=== PATIENT | female | born 2000 | race Caucasian/White ===

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

== ENCOUNTER 2021-08-28 16:33 | Emergency (ER) | payer MEDICAID ==
[~2021-08-28] VITALS: Ht 165 cm; Wt 111.0 kg
--- NOTE | 2021-08-28 17:00 | ED GI ---
General Chief Complaint: Abdominal/GI Problems Stated Complaint: SENT OVER FOR FLUIDS Source of Information: Patient Exam Limitations: No Limitations (OSWALDO RAY STUDENT) History of Present Illness Date Seen by Provider: Aug 28, 2021 Time Seen by Provider: 16:45 Initial Comments Patient is a 21 year old female who presents to the ED with a 4 day history of nausea and vomiting. Reports she had a period of 3-4 days of nausea and vomiting about 10 days ago as well. She is currently 8 weeks by ultrasound dating. Was seen at [facility] this afternoon for the same complaints, but were unable to establish IV access or draw labs so was sent to the ED. She reports having multiple bouts of nausea and vomiting at home for the last four days. Hasn't been able to keep any liquid or solids down since Friday. This is her first . Has no significant medical history. Denies chest pain, SOB, fevers, dysuria, diarrhea, headaches, and dizziness. Reports trying toast and light meals but has had no success keeping food down. Decided to present today due to inability to keep water down today. Timing/Duration: 3-4 Days Activities at Onset: None Modifying Factors: Improves With Eating Associated Symptoms: No Back Pain, No Chest Pain, No Fever/Chills, No Heartburn; Nausea/Vomiting; No Rash, No Shortness of Air, No Syncope (SOWALDO RAY MED STUDENT) Initial Comments G1 at approximately 8 weeks by ultrasound which changed her dating reports with nausea vomiting for the past 4 days. She had one episode of this before. No history of hyperemesis. No fevers chills nausea or vomiting. No sick contacts. Known to Dr. Paz. She was given a prescription for Phenergan, doxylamine and pyridoxine but has only tried the Phenergan so far without effect yesterday. LMP was 06/24/2021. (VINOD ROWE) Allergies and Home Medications Allergies Coded Allergies: Sulfa (Sulfonamide Antibiotics) (Verified Allergy, Unknown, Rash, 08/28/21) States the Sulfas in shampoo give her a rash Patient Home Medication List Home Medication List Reviewed: Yes (VINOD ROWE) Review of Systems Review of Systems Constitutional: No chills, No diaphoresis, No fever, No weakness EENTM: No Symptoms Reported; No Blurred Vision, No Double Vision, No Nose Congestion Respiratory: No Symptoms Reported; Denies Cough, Denies Shortness of Air, Denies Wheezing Cardiovascular: No Symptoms Reported; Denies Chest Pain, Denies Edema, Denies Lightheadedness, Denies Palpitations Gastrointestinal: Nausea, Vomiting Genitourinary: No Symptoms Reported; Denies Burning, Denies Discharge, Denies Drainage, Denies Frequency, Denies Pain Musculoskeletal: no symptoms reported; No back pain, No joint pain, No joint swelling Skin: no symptoms reported; No change in color, No change in hair/nails Psychiatric/Neurological: No Symptoms Reported; Denies Anxiety, Denies Depressed, Denies Headache Endocrine: No Symptoms Reported; Denies Excessive Sweating, Denies Flushing Hematologic/Lymphatic: No Symptoms Reported; Denies Easy Bleeding, Denies Easy Bruising ([email or web address] STUDENT) All Other Systems Reviewed Negative Unless Noted: Yes (DANE [email or web address] STUDENT) Past Abonpqy-Xmwcbn-Mvsmnr Hx Patient Social History Tobacco Use?: No Smoking Status: Never a Smoker Smokeless Tobacco Frequency: Never a User Use of E-Cig and/or Vaping dev: No Use of E-Cig and/or Vaping Johny: Never a User Substance use?: No Alcohol Use?: No (DANE [email or web address] STUDENT) Immunizations Up To Date Tetanus Booster (TDap): Unknown Influenza Vaccine Up-to-Date: Yes; Up-to-Date ([email or web address] STUDENT) Seasonal Allergies Seasonal Allergies: No ([email or web address] STUDENT) Past Medical History Surgeries: Yes (Oral surgery for fractured tooth removal) Respiratory: No Cardiac: No Neurological: No : Yes Hx : 1 Hx Para: 0 Reproductive Disorders: No Sexually Transmitted Disease: No HIV/AIDS: No Genitourinary: No Gastrointestinal: No Musculoskeletal: No Endocrine: No HEENT: No Loss of Vision: Denies Hearing Impairment: Denies Cancer: No Psychosocial: Yes Anxiety Integumentary: No Blood Disorders: No ([email or web address] STUDENT) Physical Exam Vital Signs Vital Signs - First Documented 08/28/21 16:40 Temp 36.4 Pulse 96 Resp 20 B/P (MAP) 139/89 (106) Pulse Ox 96 O2 Delivery Room Air (VINOD ROWE) Vital Signs Capillary Refill : (OSWALDO RAY MED STUDENT) Height/Weight/BMI Height: '" Weight: lbs. oz. kg; BMI Method: General Appearance: WD/WN, no apparent distress HEENT: PERRL/EOMI, pharynx normal Neck: non-tender, full range of motion, normal inspection Respiratory: chest non-tender, lungs clear, normal breath sounds Cardiovascular: normal peripheral pulses, regular rate, rhythm, no murmur Peripheral Pulses: 2+ Radial Pulses (R), 2+ Radial Pulses (L) Gastrointestinal: normal bowel sounds, non tender, soft; No guarding, No rebound, No tenderness Rectal: deferred Extremities: normal range of motion, non-tender, no pedal edema, no calf tenderness, normal capillary refill Back: normal inspection, no CVA tenderness, no vertebral tenderness Neurologic/Psychiatric: claim clerk II-XII nml as tested, alert, normal mood/affect, oriented x 3 Skin: normal color, warm/dry Lymphatic: no adenopathy (Head and Neck) (OSWALDO RAY MED STUDENT) Progress/Results/Core Measures Results/Orders Lab Results Laboratory Tests Test 08/28/21 16:49 Range/Units White Blood Count 11.9 H 4.3-11.0 10^3/uL Red Blood Count 4.88 3.80-5.11 10^6/uL Hemoglobin 12.9 11.5-16.0 g/dL Hematocrit 39 35-52 % Mean Corpuscular Volume 80 80-99 fL Mean Corpuscular Hemoglobin 26 25-34 pg Mean Corpuscular Hemoglobin Concent 33 32-36 g/dL Red Cell Distribution Width 13.9 10.0-14.5 % Platelet Count 362 130-400 10^3/uL Mean Platelet Volume 10.4 9.0-12.2 fL Immature Granulocyte % (Auto) 0 % Neutrophils (%) (Auto) 66 42-75 % Lymphocytes (%) (Auto) 26 12-44 % Monocytes (%) (Auto) 7 0-12 % Eosinophils (%) (Auto) 1 0-10 % Basophils (%) (Auto) 1 0-10 % Neutrophils # (Auto) 7.9 H 1.8-7.8 10^3/uL Lymphocytes # (Auto) 3.0 1.0-4.0 10^3/uL Monocytes # (Auto) 0.8 0.0-1.0 10^3/uL Eosinophils # (Auto) 0.1 0.0-0.3 10^3/uL Basophils # (Auto) 0.1 0.0-0.1 10^3/uL Immature Granulocyte # (Auto) 0.0 0.0-0.1 10^3/uL Sodium Level 136 135-145 MMOL/L Potassium Level 3.5 L 3.6-5.0 MMOL/L Chloride Level 103 98-107 MMOL/L Carbon Dioxide Level 19 L 21-32 MMOL/L Anion Gap 14 5-14 MMOL/L Blood Urea Nitrogen 8 7-18 MG/DL Creatinine 0.70 0.60-1.30 MG/DL Estimat Glomerular Filtration Rate 125 BUN/Creatinine Ratio 11 Glucose Level 92 70-105 MG/DL Calcium Level 9.6 8.5-10.1 MG/DL Magnesium Level 1.9 1.6-2.4 MG/DL (VINOD ROWE) My Orders Orders - VINOD ROWE Ed Iv/Invasive Line Start (08/28/21 17:09) Lactated Ringers (Lr 1000 Ml Iv Solution (08/28/21 17:15) Pyridoxine Tablet (Vitamin B-6 Tablet) (08/28/21 17:15) Diphenhydramine Injection (Benadryl Inje (08/28/21 17:15) Cbc With Automated Diff (08/28/21 17:09) Basic Metabolic Panel (08/28/21 17:09) Magnesium (08/28/21 17:09) Famotidine Tablet (Pepcid Tablet) (08/28/21 17:17) Antacid Suspension (Mylanta Suspension (08/28/21 17:30) Ondansetron Injection (Zofran Injectio (08/28/21 18:00) (VINOD ROWE) Medications Given in ED Current Medications Medications Dose Ordered Sig/Asuncion Route Start Time Stop Time Status Last Admin Dose Admin Al Hydrox/Mg Hydrox/Simethicone 30 ml ONCE ONCE PO 08/28/21 17:30 08/28/21 17:31 DC 08/28/21 17:28 30 ML Diphenhydramine HCl 25 mg ONCE ONCE IVP 08/28/21 17:15 08/28/21 17:16 DC 08/28/21 17:19 25 MG Lactated Ringer's 1,000 ml @ 0 mls/hr Q0M ONCE IV 08/28/21 17:15 08/28/21 17:16 DC 08/28/21 17:18 0 MLS/HR Ondansetron HCl 8 mg ONCE ONCE IVP 08/28/21 18:00 08/28/21 18:01 DC 08/28/21 17:58 8 MG Pyridoxine HCl 50 mg ONCE ONCE PO 08/28/21 17:15 08/28/21 17:16 DC 08/28/21 17:42 50 MG (VINOD ROWE) Vital Signs/I&O 08/28/21 16:40 Temp 36.4 Pulse 96 Resp 20 B/P (MAP) 139/89 (106) Pulse Ox 96 O2 Delivery Room Air (VINOD ROWE) Progress Progress Note #1: Time: 17:16 Progress Note We will give her a liter of lactated Ringer's, pyridoxine and IV Benadryl for her nausea. She is not retching at this time. Her vital signs are normal. As long as her labs are okay and we can control her symptoms we will let her go home. She is have some acid reflux so we will give her some Maalox as well. I attest that I saw this patient alongside the medical student and agree with his documented history, physical exam and review of systems except as otherwise noted. Progress Note #2: Time: 18:19 Progress Note Patient's fluids were not done but she is still having some nausea with retching so 8 mg of Zofran IV were ordered. Care of the patient passed to Sera Meyer at shift change. (VINOD ROWE) Transfer of Care Time: 18:10 Care transferred to: Sera Meyer TAX MAP TECHNICIAN (VINOD ROWE) Departure Impression Primary Impression: Nausea and vomiting during Disposition: 01 HOME, SELF-CARE Condition: Stable Departure-Patient Inst. Decision time for Depature: 18:07 (SERA MEYER POWER SYSTEM OPERATOR) Referrals: DUSTIN SHER MD (PCP/Family) Primary Care Physician Patient Instructions: Nausea and Vomiting, Adult Add. Discharge Instructions: 1. Return to Er for any concerns 2. Follow up with your doctor later this week All discharge instructions reviewed with patient and/or family. Voiced understanding. Work/School Note: Work Release Form Date Seen in the Emergency Department: Aug 28, 2021 Return to Work: Aug 29, 2021 I was not present in the Department at the time this patient was seen and evaluated. My name was attached to the chart by mistake. I have not seen, evaluated or participated in the care of this patient on this date. (UMER MORENO MD) OSWALDO RAY MED STUDENT Aug 28, 2021 17:00 VINOD ROWE Aug 28, 2021 17:17 SERA MEYER APRN Aug 28, 2021 18:06 UMER MORENO MD Aug 30, 2021 06:28
[2021-08-28 17:15] LABS: BASOPHILS # (AUTO) 0.1 10^3/uL (0.0-0.1); BASOPHILS % (AUTO) 1 % (0-10); EOSINOPHILS # (AUTO) 0.1 10^3/uL (0.0-0.3); EOSINOPHILS % (AUTO) 1 % (0-10); HEMATOCRIT 39 % (35-52); HEMOGLOBIN 12.9 g/dL (11.5-16.0); LYMPHOCYTES % (AUTO) 26 % (12-44); MEAN CORPUSCULAR HEMOGLOBIN 26 pg (25-34); MEAN CORPUSCULAR HGB CONC 33 g/dL (32-36); MEAN CORPUSCULAR VOLUME 80 fL (80-99); MEAN PLATELET VOLUME 10.4 fL (9.0-12.2); MONOCYTES # (AUTO) 0.8 10^3/uL (0.0-1.0); MONOCYTES % (AUTO) 7 % (0-12); NEUTROPHILS # (AUTO) 7.9 10^3/uL (1.8-7.8); NEUTROPHILS % (AUTO) 66 % (42-75); PLATELET COUNT 362 10^3/uL (130-400); WHITE BLOOD COUNT 11.9 10^3/uL (4.3-11.0)
[2021-08-28] MEDS ORDERED: PYRIDOXINE (VITAMIN B-6) 50 MG TABLET PO ONE (17:15)
[2021-08-28] MEDS ORDERED: LACTATED RINGERS 1,000 ML IV ONE (17:15)
[2021-08-28] MEDS ORDERED: diphenhydrAMINE 50 MG/ML INJ (BENADRYL) IVP ONE (17:15)
[2021-08-28] MEDS ORDERED: FAMOTIDINE 20 MG (PEPCID) TABLET PO STA (17:17)
[2021-08-28 17:26] LABS: CALCIUM 9.6 MG/DL (8.5-10.1); CREATININE SERUM 0.7 MG/DL (0.60-1.30); MAGNESIUM 1.9 MG/DL (1.6-2.4); POTASSIUM 3.5 MMOL/L (3.6-5.0)
[2021-08-28] MEDS ORDERED: ANTACID SUSP 30 ML UDC (MYLANTA) PO ONE (17:30)
[2021-08-28] MEDS ORDERED: ONDANSETRON 4 MG/2 ML (SDV) Z0FRAN IVP ONE (18:00)
[2021-08-28 18:28] VITALS: BP 116/68
== END 2021-08-28 18:28 | disposition home or self-care (01) ==
LOC: EDUNIT# 16:33 → ER 16:37
DX: O21.0 Mild hyperemesis gravidarum (principal); Z3A.08 8 weeks gestation of pregnancy
CPT/HCPCS: 36415; 80048; 83735; 85025

== ENCOUNTER 2021-09-23 16:13 | Emergency (ER) | payer MEDICAID ==
[~2021-09-23] VITALS: Ht 165 cm; Wt 113.3 kg
[2021-09-23] MEDS ORDERED: NS IV 1000 ML 1,000 ML IV STA ×2 (16:46→18:25)
--- NOTE | 2021-09-23 16:50 | ED GU-Female ---
General Chief Complaint: - Reproductive Stated Complaint: 12 WKS PREG/VOMITING/DIZZY Nursing Triage Note: PT PRESENTS TO ED VIA POV FROM HOME WITH COMPLAINTS OF NAUSEA/VOMITING STARTING THIS AM. PT REPORTS SHE HAS HAD 10 EPISODES OF EMESIS SINCE THIS AM. PT IS APROX 12 WEEKS . Source: patient Exam Limitations: no limitations (ANDREA RICHARDSON) History of Present Illness Date Seen by Provider: Sep 23, 2021 Time Seen by Provider: 16:47 Initial Comments Patient is a 21-year-old female who is 12 weeks presents ED with vomiting. She states since 4:00 this morning she has vomited 10+ episodes without any blood or mucus. No diarrhea. No abdominal pain. Some mild cramping to the lower back however that has improved. No vaginal bleeding, vaginal discharge or urinary symptoms. Intermittent vomiting over the past 3 to 4 weeks. Currently being managed by Dr. Rodriguez. Was placed on Phenergan and recently changed to Zofran. Last dose of Zofran this morning. She reports mild lightheadedness and dizziness and feels dehydrated. Requesting IV fluids. She denies chest pain, abdominal pain, cough ,short of breath, sore throat, ear pain headache, visual changes. No history of hypertension, diabetes. (ANDREA RICHARDSON) Allergies and Home Medications Allergies Coded Allergies: Sulfa (Sulfonamide Antibiotics) (Verified Allergy, Unknown, Rash, 08/28/21) States the Sulfas in shampoo give her a rash Patient Home Medication List Home Medication List Reviewed: Yes (ANDREA RICHARDSON) Review of Systems Review of Systems Constitutional: No chills, No diaphoresis, No malaise, No weakness EENTM: No ear pain, No blurred vision, No double vision, No hoarseness, No mouth pain Respiratory: No cough, No dyspnea on exertion Cardiovascular: No chest pain Gastrointestinal: No abdominal pain, No diarrhea; nausea, vomiting Genitourinary: denies burning, denies discharge, denies frequency, denies flank pain, denies hematuria, denies urgency Musculoskeletal: No back pain, No joint pain Skin: No change in color (ANDREA RICHARDSON) All Other Systemes Reviewed Negative Unless Noted: Yes (ANDREA RICHARDSON) Past Wvpqwnr-Uflpnn-Oiomkd Hx Patient Social History Tobacco Use?: No Substance use?: No Alcohol Use?: No Pt feels they are or have been: No (ANDREA RICHARDSON) Immunizations Up To Date Tetanus Booster (TDap): Unknown First/Initial COVID19 Vaccinat: DID RECEIVE, UNK WHEN Second COVID19 Vaccination Eriberto: DID RECEIVEN, UNK WHEN COVID19 Vaccine Travel Specialist: JUVENTINO (ANDREA RICHARDSON) Seasonal Allergies Seasonal Allergies: No (ANDREA RICHARDSON) Past Medical History Surgery/Hospitalization HX: PMH: ACID REFLUX, ANXIETY Surgeries: Yes (Oral surgery for fractured tooth removal) Respiratory: No Cardiac: No Neurological: No Reproductive Disorders: No Sexually Transmitted Disease: No HIV/AIDS: No Genitourinary: No Gastrointestinal: No Musculoskeletal: No Endocrine: No HEENT: No Loss of Vision: Denies Hearing Impairment: Denies Cancer: No Psychosocial: Yes Anxiety Integumentary: No Blood Disorders: No (ANDREA RICHARDSON) Physical Exam Vital Signs Vital Signs - First Documented 09/23/21 09/23/21 16:20 19:31 Pulse 104 Resp 18 B/P (MAP) 117/96 (103) Pulse Ox 99 O2 Delivery Room Air (TATUM HYDE MD) Vital Signs Capillary Refill : Less Than 3 Seconds (ANDREA RICHARDSON) Height, Weight, BMI Height: '" Weight: lbs. oz. kg; 41.00 BMI Method: General Appearance: WD/WN, no apparent distress HEENT: PERRL/EOMI, normal ENT inspection, TMs normal, pharynx normal Neck: non-tender, full range of motion, supple, normal inspection Cardiovascular: regular rate, rhythm, no edema, no gallop, no JVD Respiratory: chest non-tender, lungs clear, normal breath sounds, no respiratory distress, no accessory muscle use Gastrointestinal: normal bowel sounds, non tender, soft, no organomegaly Back: normal inspection, no CVA tenderness Extremities: normal range of motion, non-tender, normal inspection, no pedal edema, no calf tenderness Neurologic/Psychiatric: manager labor relations II-XII nml as tested, no motor/sensory deficits, alert, normal mood/affect, oriented x 3 Skin: normal color, warm/dry (ANDREA RICHARDSON) Progress/Results/Core Measures Suspected Sepsis SIRS Temperature: Pulse: 104 Respiratory Rate: 18 Laboratory Tests 09/23/21 16:30: White Blood Count 8.6 Blood Pressure 117 /96 Mean: 103 Laboratory Tests 09/23/21 16:30: Creatinine 0.65, Platelet Count 267, Total Bilirubin 0.7 (ANDREA RICHARDSON) Results/Orders Lab Results Laboratory Tests Test 09/23/21 16:30 Range/Units White Blood Count 8.6 4.3-11.0 10^3/uL Red Blood Count 4.83 3.80-5.11 10^6/uL Hemoglobin 13.0 11.5-16.0 g/dL Hematocrit 40 35-52 % Mean Corpuscular Volume 82 80-99 fL Mean Corpuscular Hemoglobin 27 25-34 pg Mean Corpuscular Hemoglobin Concent 33 32-36 g/dL Red Cell Distribution Width 14.7 H 10.0-14.5 % Platelet Count 267 130-400 10^3/uL Mean Platelet Volume 10.4 9.0-12.2 fL Immature Granulocyte % (Auto) 0 % Neutrophils (%) (Auto) 87 H 42-75 % Lymphocytes (%) (Auto) 10 L 12-44 % Monocytes (%) (Auto) 3 0-12 % Eosinophils (%) (Auto) 0 0-10 % Basophils (%) (Auto) 0 0-10 % Neutrophils # (Auto) 7.5 1.8-7.8 10^3/uL Lymphocytes # (Auto) 0.9 L 1.0-4.0 10^3/uL Monocytes # (Auto) 0.2 0.0-1.0 10^3/uL Eosinophils # (Auto) 0.0 0.0-0.3 10^3/uL Basophils # (Auto) 0.0 0.0-0.1 10^3/uL Immature Granulocyte # (Auto) 0.0 0.0-0.1 10^3/uL Urine Color DARK YELLOW Urine Clarity CLEAR Urine pH 7.0 5-9 Urine Specific Rover 1.020 1.016-1.022 Urine Protein TRACE H NEGATIVE Urine Glucose (UA) NEGATIVE NEGATIVE Urine Ketones 3+ H NEGATIVE Urine Nitrite NEGATIVE NEGATIVE Urine Bilirubin NEGATIVE NEGATIVE Urine Urobilinogen 0.2 < = 1.0 MG/DL Urine Leukocyte Esterase NEGATIVE NEGATIVE Urine RBC (Auto) NEGATIVE NEGATIVE Urine RBC NONE /HPF Urine WBC NONE /HPF Urine Crystals NONE /LPF Urine Bacteria TRACE /HPF Urine Casts NONE /LPF Urine Mucus LARGE H /LPF Urine Culture Indicated NO Sodium Level 138 135-145 MMOL/L Potassium Level 3.9 3.6-5.0 MMOL/L Chloride Level 106 98-107 MMOL/L Carbon Dioxide Level 17 L 21-32 MMOL/L Anion Gap 15 H 5-14 MMOL/L Blood Urea Nitrogen 4 L 7-18 MG/DL Creatinine 0.65 0.60-1.30 MG/DL Estimat Glomerular Filtration Rate 128 BUN/Creatinine Ratio 6 Glucose Level 99 70-105 MG/DL Calcium Level 9.3 8.5-10.1 MG/DL Corrected Calcium 9.3 8.5-10.1 MG/DL Magnesium Level 1.8 1.6-2.4 MG/DL Total Bilirubin 0.7 0.1-1.0 MG/DL Aspartate Amino Transf (AST/SGOT) 35 H 5-34 U/L Alanine Aminotransferase (ALT/SGPT) 103 H 0-55 U/L Alkaline Phosphatase 75 40-136 U/L Total Protein 7.3 6.4-8.2 GM/DL Albumin 4.0 3.2-4.5 GM/DL Lipase 19 8-78 U/L Human Chorionic Gonadotropin, Quant 76434 H <5 MIU/ML (TATUM HYDE MD) Medications Given in ED Current Medications Medications Dose Ordered Sig/Asuncion Route Start Time Stop Time Status Last Admin Dose Admin Ondansetron HCl 4 mg ONCE ONCE IVP 09/23/21 17:00 09/23/21 17:01 DC 09/23/21 17:07 4 MG Promethazine HCl 25 mg ONCE ONCE IVP 09/23/21 18:30 09/23/21 18:31 DC 09/23/21 18:36 25 MG (TATUM HYDE MD) Vital Signs/I&O 09/23/21 09/23/21 16:20 19:31 Pulse 104 72 Resp 18 18 B/P (MAP) 117/96 (103) 107/70 Pulse Ox 99 96 O2 Delivery Room Air (TATUM HYDE MD) Vital Signs/I&O Capillary Refill : Less Than 3 Seconds (ANDREA RICHARDSON) Blood Pressure Mean: 103 Departure Communication (PCP) Patient presents to ED nausea and vomiting since this morning. 12 weeks . She has no abdominal pain with some mild discomfort in her lower back. She has had a previous ultrasound. No vaginal bleeding or urinary symptoms, vaginal discharge. Urinalysis negative for infection but with positive ketones. Concerning for dehydration. Lab work showed normal white blood count kidney function and electrolytes. Slight elevated liver enzymes. She has no right upper quadrant tenderness, right lower quadrant tenderness to suggest surgical abdomen. No cough shortness of breath. She is normotensive. Vital signs stable. Was given a liter of fluid and Zofran as she was prescribed Zofran and Phenergan by her [employer] [address] Rodriguez. Patient was given a second dose of Phenergan and another liter of fluid. Patient started to have an appetite was able to eat peanut butter and crackers here. Was drinking p.o. fluids at bedside. She is requesting to be discharge as she states she feels hungry. cardiac activity noted. Patient is recommend to follow-up with her [employer] TE[employer] TEACHER in the next few days for reevaluation. If any worsening symptoms return back to ED for further evaluation. She does have nausea medication. Vomiting during . (ANDREA RICHARDSON) Impression Primary Impression: Nausea and vomiting during Disposition: 01 HOME, SELF-CARE Condition: Stable Departure-Patient Inst. Referrals: ANA RODRIGUEZ MD (PCP) Primary Care Physician DUSTIN SHER MD (Family) Primary Care Physician Patient Instructions: Nausea and Vomiting of ATTENDING PHYSICIAN NOTE: I was physically present as attending physician in the emergency department during the care of this patient, but I was not directly involved in the decision making or delivery of care for this patient. (TATUM HYDE MD) ANDREA RICHARDSON Sep 23, 2021 16:50 TATUM HYDE MD Sep 23, 2021 20:25
[2021-09-23 16:53] LABS: BASOPHILS % (AUTO) 0 % (0-10); EOSINOPHILS % (AUTO) 0 % (0-10); HEMATOCRIT 40 % (35-52); LYMPHOCYTES # (AUTO) 0.9 10^3/uL (1.0-4.0); LYMPHOCYTES % (AUTO) 10 % (12-44); MEAN CORPUSCULAR HEMOGLOBIN 27 pg (25-34); MEAN CORPUSCULAR HGB CONC 33 g/dL (32-36); MEAN CORPUSCULAR VOLUME 82 fL (80-99); MEAN PLATELET VOLUME 10.4 fL (9.0-12.2); MONOCYTES # (AUTO) 0.2 10^3/uL (0.0-1.0); MONOCYTES % (AUTO) 3 % (0-12); NEUTROPHILS # (AUTO) 7.5 10^3/uL (1.8-7.8); NEUTROPHILS % (AUTO) 87 % (42-75); PLATELET COUNT 267 10^3/uL (130-400); WHITE BLOOD COUNT 8.6 10^3/uL (4.3-11.0)
[2021-09-23 16:54] LABS: POTASSIUM 3.9 MMOL/L (3.6-5.0)
[2021-09-23 16:55] LABS: CALCIUM 9.3 MG/DL (8.5-10.1)
[2021-09-23 16:56] LABS: TOTAL PROTEIN 7.3 GM/DL (6.4-8.2)
[2021-09-23 16:58] LABS: BILIRUBIN,TOTAL 0.7 MG/DL (0.1-1.0)
[2021-09-23 17:00] LABS: CREATININE SERUM 0.65 MG/DL (0.60-1.30)
[2021-09-23] MEDS ORDERED: ONDANSETRON 4 MG/2 ML (SDV) Z0FRAN IVP ONE (17:00)
[2021-09-23 17:03] LABS: MAGNESIUM 1.8 MG/DL (1.6-2.4)
[2021-09-23 17:27] LABS: BILIRUBIN,URINE NEGATIVE (NEGATIVE); CLARITY,URINE CLEAR; COLOR,URINE DARK YELLOW; GLUCOSE, URINE (UA) NEGATIVE (NEGATIVE); KETONES,URINE 3+ (NEGATIVE); LEUKOCYTE ESTERASE ,URINE NEGATIVE (NEGATIVE); NITRITE,URINE NEGATIVE (NEGATIVE); PROTEIN,URINE TRACE (NEGATIVE)
[2021-09-23 17:38] LABS: BACTERIA,URINE TRACE /HPF
[2021-09-23] MEDS ORDERED: PROMETHAZINE INJ 25 MG/ML (PHENERGAN) AMP IVP ONE (18:30)
[2021-09-23 19:31] VITALS: BP 107/70
== END 2021-09-23 19:29 | disposition home or self-care (01) ==
LOC: EDUNIT# 16:13 → ER 16:14
DX: O21.0 Mild hyperemesis gravidarum (principal); Z3A.12 12 weeks gestation of pregnancy
CPT/HCPCS: 36415; 80053; 81000; 83690; 83735; 84702; 85025

== ENCOUNTER 2021-10-05 11:02 | Day surgery (SDC) | payer MEDICAID ==
[~2021-10-05] VITALS: Ht 165.1 cm; Wt 105.0 kg
[2021-10-05] VITALS (15 sets, daily range): BP systolic 79–131; BP diastolic 37–83
[2021-10-05] MEDS ORDERED: fentaNYL INJ 100 MCG/2 ML AMP ONE (11:29)
[2021-10-05] MEDS ORDERED: LACTATED RINGERS 1,000 ML IV PRN (11:30)
[2021-10-05] MEDS ORDERED: MIDAZOLAM 2 MG/2 ML (VERSED) VIAL IV ONE (11:30)
[2021-10-05] MEDS ORDERED: DOXYCYCLINE INJECTION 100 MG in NS (IVPB) 100 ML IV ONE (11:30)
[2021-10-05 11:50] LABS: CLARITY,URINE CLEAR; COLOR,URINE YELLOW; GLUCOSE, URINE (UA) NEGATIVE (NEGATIVE); KETONES,URINE 3+ (NEGATIVE); LEUKOCYTE ESTERASE ,URINE 1+ (NEGATIVE); NITRITE,URINE NEGATIVE (NEGATIVE); PROTEIN,URINE NEGATIVE (NEGATIVE)
[2021-10-05 12:04] LABS: BACTERIA,URINE NEGATIVE /HPF; BILIRUBIN,URINE 1+ (NEGATIVE); RBC,URINE RARE /HPF; SQUAMOUS EPITHELIAL CELL,UR 0-2 /HPF
[2021-10-05 12:28] LABS: BASOPHILS % (AUTO) 0 % (0-10); EOSINOPHILS # (AUTO) 0.1 10^3/uL (0.0-0.3); EOSINOPHILS % (AUTO) 1 % (0-10); HEMATOCRIT 38 % (35-52); HEMOGLOBIN 12.5 g/dL (11.5-16.0); LYMPHOCYTES # (AUTO) 3.1 10^3/uL (1.0-4.0); LYMPHOCYTES % (AUTO) 34 % (12-44); MEAN CORPUSCULAR HEMOGLOBIN 27 pg (25-34); MEAN CORPUSCULAR HGB CONC 33 g/dL (32-36); MEAN CORPUSCULAR VOLUME 83 fL (80-99); MEAN PLATELET VOLUME 10.6 fL (9.0-12.2); MONOCYTES # (AUTO) 0.6 10^3/uL (0.0-1.0); MONOCYTES % (AUTO) 6 % (0-12); NEUTROPHILS # (AUTO) 5.5 10^3/uL (1.8-7.8); NEUTROPHILS % (AUTO) 59 % (42-75); PLATELET COUNT 290 10^3/uL (130-400); WHITE BLOOD COUNT 9.4 10^3/uL (4.3-11.0)
[2021-10-05] MEDS ORDERED: LIDOCAINE/EPI 1%-1:200,000 (XYLOCAINE) 30 ML VIAL ONE (12:43)
[2021-10-05] MEDS ORDERED: ONDANSETRON 4 MG/2 ML (SDV) Z0FRAN IVP PRN ×2 (12:45→13:30)
[2021-10-05] MEDS ORDERED: D5 LR IV SOLUTION 1,000 ML IV SCH (12:45)
[2021-10-05] MEDS ORDERED: KETOROLAC 30 MG/ML VIAL IVP ONE (12:45)
[2021-10-05] MEDS ORDERED: ONDANSETRON 4 MG/2 ML (SDV) Z0FRAN ONE (12:56)
[2021-10-05] MEDS ORDERED: KETOROLAC 30 MG/ML VIAL ONE (12:56)
[2021-10-05] MEDS ORDERED: proPOfol 200 MG/20 ML (DIPRIVAN) VIAL IV ONE (12:56)
[2021-10-05] MEDS ORDERED: LIDOCAINE PF 2% 5 ML (XYLOCAINE) VIAL ONE (12:56)
[2021-10-05] MEDS ORDERED: SEVOFLURANE (ULTANE) 15 ML INHAL SOLN ONE (13:16)
[2021-10-05] MEDS ORDERED: MEPERIDINE (DEMEROL) INJ 50 MG/ML IVP ONE (13:30)
[2021-10-05] MEDS ORDERED: morphine INJ 10 MG/ML 1ML (SYR OR VIAL) IVP ONE (13:30)
[2021-10-05] MEDS ORDERED: HYDROmorphone 2 MG/ML VIAL (DILAUDID) IV ONE (13:30)
--- NOTE | 2021-10-05 13:46 | Anesthesia-General Post-Op ---
General Patient Condition Mental Status/LOC: Same as Preop Cardiovascular: Satisfactory Nausea/Vomiting: Absent Respiratory: Satisfactory Pain: Controlled Complications: Absent Post Op Complications Complications None Follow Up Care/Instructions Patient Instructions None needed. Anesthesia/Patient Condition Patient Condition Patient is doing well, no complaints, stable vital signs, no apparent adverse anesthesia problems. No complications reported per nursing. BUTCH SANCHEZ CRNA October 05, 2021 13:46
[2021-10-05] MEDS ORDERED: oxyCODONE/APAP 5/325MG (PERCOCET 5) TABLET PO ONE ×2 (14:45→15:30)
[2021-10-05] MEDS ORDERED: LACTATED RINGERS 1,000 ML IV SCH ×2 (15:00→15:30)
--- NOTE | 2021-10-07 22:21 | OB/GYN Operative Report ---
Operative Report Date of Procedure:October 07, 2021 Preoperative Diagnosis: [Missed AB at 8 weeks] Postoperative Diagnosis: [Same] Name of the Procedure: [Sono-guided suction D&C] Surgeon: Jonathon Webb Sharepoint Manager(s): [none] Anesthesia: [General] Complications: None Disposition: [Stable Procedure After the risk benefits alternatives of the procedure were described to the patient she was taken to the operating room where general anesthesia was obtained at difficulty. Bedside sono confirmed diagnosis. She was prepped and draped in the usual sterile fashion. A weighted speculum was placed in the patient's vagina and the anterior lip of the cervix grasped with a double-tooth tenaculum. A paracervical block was placed with lidocaine with epi. The cervix was serially dilated to accommodate an 8 curved suction tip. The suction tip was advanced under sono guidance, suction applied and the device removed. This was repeated until no further products of tissue were seen in the suction tubing and sono confirmed removal of all appreciated products of conception. Minimal lochia was noted. All instruments removed from the patient's vagina. Patient tolerated the procedure well sponge lap needle instrument counts were correct and she was taken to the recovery room awake and in stable condition. She received doxycycline 100 mg preop JONATHON WEBB MD October 07, 2021 22:21
== END 2021-10-05 15:45 | disposition home or self-care (01) ==
LOC: SDC 11:02
PROVIDERS: ATTEND Obstetrics & Gynecology
DX: O02.1 Missed abortion (principal); N85.8 Other specified noninflammatory disorders of uterus; E66.9 Obesity, unspecified; Z68.38 Body mass index [BMI] 38.0-38.9, adult
CPT/HCPCS: 36415; 81000; 84702; 85025; 86850; 86900; 86901; 87081

== ENCOUNTER → 2022-01-09 | Outpatient (CLI) | payer MEDICAID ==
[2022-01-09 14:13] VITALS: BP 137/67
--- NOTE | 2022-01-09 16:33 | Cardiology Stress Test Report ---
Stress Test Report Date of Procedure/Referring: Date of Procedure: Jan 09, 2022 PCP Effie Davila Aprn Admitting Physician Admitting Physician: Attending Physician: Kalin Lima MD Indications: CP Baseline Heart Rate: 88 Baseline Blood Pressure: Blood Pressure Systolic: 137 Blood Pressure Diastolic: 67 Baseline EKG: Baseline EKG: NSR Summary/Conclusion: Summary: In summary, the patient started exercising with a baseline heart rate, blood pressure and EKG mentioned above Patient was able to exercise for a total of 5 minutes on Scotty protocol, METs 7 Maximum heart rate 180 Maximum blood pressure 159/52 Stress EKG, Minimal nondiagnostic changes Recovery EKG , Return to baseline Conclusion: 1. Good exercise tolerance for a total of 5 minutes on Scotty protocol, 7 METs, achieving 90 percent of maximum expected heart rate 2. Minimal nondiagnostic EKG changes with exercise returned to baseline during recovery 3. No arrhythmia was noted KALIN LIMA MD Jan 09, 2022 16:33
== END ==
LOC: CARD 13:00
PROVIDERS: ATTEND Internal Medicine Cardiovascular Disease
DX: I35.1 Nonrheumatic aortic (valve) insufficiency (principal); I25.10 Atherosclerotic heart disease of native coronary artery without angina pectoris; I10 Essential (primary) hypertension
CPT/HCPCS: 93017; 93306

== ENCOUNTER 2022-04-27 20:18 | Emergency (ER) | payer MEDICAID ==
[~2022-04-27] VITALS: Ht 162.6 cm; Wt 105.0 kg
[2022-04-27] MEDS ORDERED: LACTATED RINGERS 1,000 ML IV ONE (20:30)
--- NOTE | 2022-04-27 20:38 | ED GI ---
General Chief Complaint: Abdominal/GI Problems Stated Complaint: VOMITING 9 WKS PREG Nursing Triage Note: Pt ambulates to ED8, reports she is a "few days shy of 9 weeks ", increasing nausea, reports cannot keep anything down, increasing severity beginning earlier today Source of Information: Patient History of Present Illness Date Seen by Provider: Apr 27, 2022 Time Seen by Provider: 20:25 Initial Comments PT ARRIVES VIA POV FROM HOME PT STATES SHE IS 9 WEEKS , WITH LMP OF 02/22/22. HAD + HOME TEST THE END OF MARCH. PT IS AB1--MISSED AB WITH D&C 10/05/21 HAS FIRST OB APPOINTMENT WITH DR. GARCIA 05/02/22. SHE HAS HAD ONGOING NAUSEA AND VOMITING FOR THE LAST COUPLE OF WEEKS, WAS WORSE TODAY STATES SHE CAN'T KEEP ANYTHING DOWN. HAS VOMITED 5-6 TIMES TODAY. NO COFFEE- GROUND EMESIS OR HEMATEMESIS NO BM TODAY, HAD A VERY HARD/CONSTIPATED STOOL YESTERDAY; NO BLACK/BLOODY/TARRY STOOLS HAS NOT VOIDED SINCE THIS AM. NO FEVER ABDOMINAL MUSCLES ARE STARTING TO GET SORE FROM VOMITING, BUT NO PELVIC PAIN OR CRAMPING] NO VAGINAL BLEEDING. TOOK A ZOFRAN THIS AM. PT HAS HISTORY OF GERD AND IBS, BUT DOES NOT TAKE MEDICATION FOR THOSE PROBLEMS WAS TAKING LEXAPRO FOR ANXIETY, SHE IS NOT CURRENTLY TAKING IT. SHE DOES NOT TAKE ANY DAILY MEDICATION OTHER THAN VITAMINS AT THIS TIME. PCP: SEES [facility] [employer] HERE IN [place]. Allergies and Home Medications Allergies Coded Allergies: Sulfa (Sulfonamide Antibiotics) (Verified Allergy, Unknown, Rash, 08/28/21) States the Sulfas in shampoo give her a rash Patient Home Medication List No Active Prescriptions or Reported Meds Review of Systems Review of Systems Constitutional: no symptoms reported Respiratory: No Symptoms Reported Cardiovascular: No Symptoms Reported Gastrointestinal: See HPI Genitourinary: See HPI Musculoskeletal: no symptoms reported Skin: no symptoms reported Psychiatric/Neurological: No Symptoms Reported Endocrine: No Symptoms Reported Hematologic/Lymphatic: No Symptoms Reported Past Pilrncf-Bllihw-Pbosub Hx Patient Social History Tobacco Use?: No Smoking Status: Never a Smoker Smokeless Tobacco Frequency: Never a User Use of E-Cig and/or Vaping dev: No Use of E-Cig and/or Vaping Johny: Never a User Substance use?: No Alcohol Use?: No Pt feels they are or have been: No Immunizations Up To Date Tetanus Booster (TDap): Unknown First/Initial COVID19 Vaccinat: DID RECEIVE, UNK WHEN Second COVID19 Vaccination Eriberto: DID RECEIVEN, UNK WHEN Third COVID19 Vaccination Date: DID RECEIVE, UNK WHEN Seasonal Allergies Seasonal Allergies: No Past Medical History Surgery/Hospitalization HX: PMH: ACID REFLUX, ANXIETY Surgeries: Yes (Oral surgery for fractured tooth removal;D&C 10/05/21 FOR MISSED AB. ) Respiratory: No Currently Using CPAP: No Currently Using BIPAP: No Cardiac: No Neurological: No : Yes Last Menstrual Period: Feb 22, 2022 Hx : 2 Hx Para: 0 Hx Total # of Abortions (Sp): 1 (MISSED AB WITH D&C 10/05/21) Reproductive Disorders: No Female Reproductive Disorders: Denies Sexually Transmitted Disease: No HIV/AIDS: No Genitourinary: No Gastrointestinal: No Musculoskeletal: No Endocrine: No HEENT: No Loss of Vision: Denies Hearing Impairment: Denies Cancer: No Psychosocial: Yes Anxiety Integumentary: No Blood Disorders: No Physical Exam Vital Signs Vital Signs - First Documented 04/27/22 20:28 Temp 36.4 Pulse 116 Resp 22 B/P (MAP) 153/103 (120) Pulse Ox 98 O2 Delivery Room Air Capillary Refill : Height/Weight/BMI Height: '" Weight: lbs. oz. kg; 39.00 BMI Method: General Appearance: WD/WN, obese, other (ANXIOUS) HEENT: PERRL/EOMI, other (ORAL MUCOSA MOIST) Neck: normal inspection Respiratory: normal breath sounds, no respiratory distress, no accessory muscle use Cardiovascular: no murmur Gastrointestinal: normal bowel sounds, soft, tenderness (MILD EPIGASTRIC TEND ERNESS. 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, no motor/sensory deficits, alert, oriented x 3 Skin: normal color, warm/dry Progress/Results/Core Measures Results/Orders Lab Results Laboratory Tests Test 04/27/22 20:32 04/27/22 21:01 Range/Units White Blood Count 10.4 4.3-11.0 10^3/uL Red Blood Count 5.23 H 3.80-5.11 10^6/uL Hemoglobin 12.0 11.5-16.0 g/dL Hematocrit 38 35-52 % Mean Corpuscular Volume 73 L 80-99 fL Mean Corpuscular Hemoglobin 23 L 25-34 pg Mean Corpuscular Hemoglobin Concent 31 L 32-36 g/dL Red Cell Distribution Width 19.6 H 10.0-14.5 % Platelet Count 360 130-400 10^3/uL Mean Platelet Volume 10.0 9.0-12.2 fL Immature Granulocyte % (Auto) 0 % Neutrophils (%) (Auto) 61 42-75 % Lymphocytes (%) (Auto) 31 12-44 % Monocytes (%) (Auto) 5 0-12 % Eosinophils (%) (Auto) 2 0-10 % Basophils (%) (Auto) 0 0-10 % Neutrophils # (Auto) 6.4 1.8-7.8 10^3/uL Lymphocytes # (Auto) 3.3 1.0-4.0 10^3/uL Monocytes # (Auto) 0.5 0.0-1.0 10^3/uL Eosinophils # (Auto) 0.2 0.0-0.3 10^3/uL Basophils # (Auto) 0.0 0.0-0.1 10^3/uL Immature Granulocyte # (Auto) 0.0 0.0-0.1 10^3/uL Sodium Level 138 135-145 MMOL/L Potassium Level 3.5 L 3.6-5.0 MMOL/L Chloride Level 104 98-107 MMOL/L Carbon Dioxide Level 18 L 21-32 MMOL/L Anion Gap 16 H 5-14 MMOL/L Blood Urea Nitrogen 5 L 7-18 MG/DL Creatinine 0.70 0.60-1.30 MG/DL Estimat Glomerular Filtration Rate 125 BUN/Creatinine Ratio 7 Glucose Level 94 70-105 MG/DL Calcium Level 9.6 8.5-10.1 MG/DL Corrected Calcium 9.4 8.5-10.1 MG/DL Total Bilirubin 0.4 0.1-1.0 MG/DL Aspartate Amino Transf (AST/SGOT) 24 5-34 U/L Alanine Aminotransferase (ALT/SGPT) 53 0-55 U/L Alkaline Phosphatase 89 40-136 U/L Total Protein 8.1 6.4-8.2 GM/DL Albumin 4.3 3.2-4.5 GM/DL Amylase Level 41 25-125 U/L Lipase 15 8-78 U/L Human Chorionic Gonadotropin, Quant [id number] H <5 MIU/ML Urine Color YELLOW Urine Clarity CLOUDY Urine pH 7.0 5-9 Urine Specific [place] 1.025 H 1.016-1.022 Urine Protein NEGATIVE NEGATIVE Urine Glucose (UA) NEGATIVE NEGATIVE Urine Ketones 3+ H NEGATIVE Urine Nitrite NEGATIVE NEGATIVE Urine Bilirubin NEGATIVE NEGATIVE Urine Urobilinogen 1.0 < = 1.0 MG/DL Urine Leukocyte Esterase 2+ H NEGATIVE Urine RBC (Auto) NEGATIVE NEGATIVE Urine RBC NONE /HPF Urine WBC 10-25 H /HPF Urine Squamous Epithelial Cells 2-5 /HPF Urine Crystals PRESENT H /LPF Urine Amorphous Sediment LARGE JESU URATES H /LPF Urine Bacteria FEW H /HPF Urine Casts NONE /LPF Urine Mucus NEGATIVE /LPF Urine Culture Indicated YES Urine Opiates Screen NEGATIVE NEGATIVE Urine Oxycodone Screen NEGATIVE NEGATIVE Urine Methadone Screen NEGATIVE NEGATIVE Urine Propoxyphene Screen NEGATIVE NEGATIVE Urine Barbiturates Screen NEGATIVE NEGATIVE Ur Tricyclic Antidepressants Screen NEGATIVE NEGATIVE Urine Phencyclidine Screen NEGATIVE NEGATIVE Urine Amphetamines Screen NEGATIVE NEGATIVE Urine Methamphetamines Screen NEGATIVE NEGATIVE Urine Benzodiazepines Screen NEGATIVE NEGATIVE Urine Cocaine Screen NEGATIVE NEGATIVE Urine Cannabinoids Screen NEGATIVE NEGATIVE My Orders Orders - SHALONDA RAMÍREZ DO Ed Iv/Invasive Line Start (04/27/22 20:26) Heart Tones (04/27/22 20:26) Amylase (04/27/22 20:26) Cbc With Automated Diff (04/27/22 20:26) Comprehensive Metabolic Panel (04/27/22 20:26) Drug Screen Stat (Urine) (04/27/22 20:26) Hcg,Quantitative (04/27/22 20:26) Lipase (04/27/22 20:26) Ua Culture If Indicated (04/27/22 20:26) Ed Iv/Invasive Line Start (04/27/22 20:26) Lactated Ringers (Lr 1000 Ml Iv Solution (04/27/22 20:30) Metoclopramide Injection (Reglan Injecti (04/27/22 20:45) Urine Culture (04/27/22 21:01) Ceftriaxone 1 Gm Pre-Mix (Rocephin 1 Gm (04/27/22 22:00) Medications Given in ED Current Medications Medications Dose Ordered Sig/Asuncion Route Start Time Stop Time Status Last Admin Dose Admin Ceftriaxone Sodium/Dextrose 50 ml @ 100 mls/hr ONCE ONCE IV 04/27/22 22:00 04/27/22 22:29 04/27/22 22:03 100 MLS/HR Lactated Ringer's 1,000 ml @ 0 mls/hr Q0M ONCE IV 04/27/22 20:30 04/27/22 20:31 DC 04/27/22 20:35 999 MLS/HR Metoclopramide HCl 10 mg ONCE ONCE IVP 04/27/22 20:45 04/27/22 20:46 DC 04/27/22 20:56 10 MG Vital Signs/I&O 04/27/22 20:28 Temp 36.4 Pulse 116 Resp 22 B/P (MAP) 153/103 (120) Pulse Ox 98 O2 Delivery Room Air Blood Pressure Mean: 120 Progress Progress Note : Progress Note UNABLE TO OBTAIN FHT'S AT THIS TIME. GIVEN IV FLUIDS AND REGLAN Departure Impression Primary Impression: Nausea and vomiting during prior to 22 weeks gestation Additional Impressions: UTI (urinary tract infection) in in first trimester Mild dehydration Disposition: 01 HOME, SELF-CARE Condition: Improved Departure-Patient Inst. Decision time for Depature: 22:13 Referrals: NUNO GARCIA PATRICIA C APRN (PCP) Primary Care Physician Patient Instructions: Morning Sickness ED, Dehydration, Adult ED, Urinary Tract Infections in Add. Discharge Instructions: CLEAR LIQUIDS, SIPS AT A TIME--WATER, BROTH, JELLO, GATORADE, POPSICLES BRATS DIET--BANANAS, RICE, APPLESAUCE, TOAST, SALTINES TYLENOL NEEDED FOR PAIN FOLLOW UP WITH DR. GARCIA THIS WEEK SCHEDULED RETURN TO ER IF SYMPTOMS WORSEN All discharge instructions reviewed with patient and/or family. Voiced understanding. Scripts Metoclopramide HCl (Reglan) 10 Mg Tablet 10 MG PO Q6H for Nausea/Vomiting, #10 TAB Prov: SHALONDA RAMÍREZ DO 04/27/22 Doxylamine/Pyridoxine HCl (Aye Cho 10-10 mg Tablet) 10 Mg-10 Mg Tablet.dr 2 EACH PO HS, #60 TAB Prov: SHALONDA RAMÍREZ DO 04/27/22 Nitrofurantoin Monohyd/M-Cryst (Macrobid 100 mg Capsule) 100 Mg Capsule 1 TAB PO BID, #20 CAP Prov: SHALONDA RAMÍREZ DO 04/27/22 SHALONDA RAMÍREZ DO Apr 27, 2022 20:38
[2022-04-27] MEDS ORDERED: METOCLOPRAMIDE INJ 10 MG/2 ML (REGLAN) IVP ONE (20:45)
[2022-04-27 20:51] LABS: BASOPHILS % (AUTO) 0 % (0-10); EOSINOPHILS # (AUTO) 0.2 10^3/uL (0.0-0.3); EOSINOPHILS % (AUTO) 2 % (0-10); HEMATOCRIT 38 % (35-52); LYMPHOCYTES # (AUTO) 3.3 10^3/uL (1.0-4.0); LYMPHOCYTES % (AUTO) 31 % (12-44); MEAN CORPUSCULAR HEMOGLOBIN 23 pg (25-34); MEAN CORPUSCULAR HGB CONC 31 g/dL (32-36); MEAN CORPUSCULAR VOLUME 73 fL (80-99); MONOCYTES # (AUTO) 0.5 10^3/uL (0.0-1.0); MONOCYTES % (AUTO) 5 % (0-12); NEUTROPHILS # (AUTO) 6.4 10^3/uL (1.8-7.8); NEUTROPHILS % (AUTO) 61 % (42-75); PLATELET COUNT 360 10^3/uL (130-400); WHITE BLOOD COUNT 10.4 10^3/uL (4.3-11.0)
[2022-04-27 21:10] LABS: ALBUMIN 4.3 GM/DL (3.2-4.5); BILIRUBIN,TOTAL 0.4 MG/DL (0.1-1.0); CALCIUM 9.6 MG/DL (8.5-10.1); CREATININE SERUM 0.7 MG/DL (0.60-1.30); POTASSIUM 3.5 MMOL/L (3.6-5.0); TOTAL PROTEIN 8.1 GM/DL (6.4-8.2)
[2022-04-27 21:17] LABS: BILIRUBIN,URINE NEGATIVE (NEGATIVE); CLARITY,URINE CLOUDY; COLOR,URINE YELLOW; GLUCOSE, URINE (UA) NEGATIVE (NEGATIVE); KETONES,URINE 3+ (NEGATIVE); LEUKOCYTE ESTERASE ,URINE 2+ (NEGATIVE); NITRITE,URINE NEGATIVE (NEGATIVE); PROTEIN,URINE NEGATIVE (NEGATIVE)
[2022-04-27 21:30] LABS: AMORPHOUS SEDIMENT,UR LARGE AMOR URATES /LPF; BACTERIA,URINE FEW /HPF
[2022-04-27 21:49] LABS: AMPHETAMINE SCREEN, URINE NEGATIVE (NEGATIVE); BARBITURATE SCREEN URINE NEGATIVE (NEGATIVE); BENZODIAZEPINES SCREEN URINE NEGATIVE (NEGATIVE); CANNABINOID SCREEN, URINE NEGATIVE (NEGATIVE); COCAINE SCREEN URINE NEGATIVE (NEGATIVE); METHADONE STAT NEGATIVE (NEGATIVE); OPIATE SCREEN URINE NEGATIVE (NEGATIVE); OXYCODONE STAT NEGATIVE (NEGATIVE); PROPOXYPHENE STAT NEGATIVE (NEGATIVE); TRICYCLIC ANTIDEPRESSANTS SCRE NEGATIVE (NEGATIVE)
[2022-04-27] MEDS ORDERED: cefTRIAXone 1 GM PRE-MIX 50 ML IV ONE (22:00)
[2022-04-27] MEDS ORDERED: METO-310 PO (22:15)
[2022-04-27] MEDS ORDERED: NITR-65 PO (22:15)
[2022-04-27] MEDS ORDERED: DOXY1TAB3 PO (22:15)
[2022-04-27 22:22] VITALS: BP 118/69
== END 2022-04-27 22:24 | disposition home or self-care (01) ==
LOC: EDUNIT# 20:18 → ER 20:20
DX: O21.9 Vomiting of pregnancy, unspecified (principal); O23.41 Unspecified infection of urinary tract in pregnancy, first trimester; N39.0 Urinary tract infection, site not specified; O99.281 Endocrine, nutritional and metabolic diseases complicating pregnancy, first trimester; E86.0 Dehydration; Z3A.09 9 weeks gestation of pregnancy; Z91.14 Patient's other noncompliance with medication regimen
CPT/HCPCS: 36415; 80053; 80306; 81000; 82150; 83690; 84702; 85025; 87088; 99283

== ENCOUNTER → 2022-07-12 | Outpatient (CLI) | payer MEDICAID ==
[~2022-07-12] MED LIST: DOXY1TAB3 PO; METO-310 PO; NITR-65 PO
--- NOTE | 2022-07-12 17:38 | Diagnostic Imaging Report ---
INDICATION: patient, survey TECHNIQUE: Multiple real-time grayscale images were obtained over the gravid uterus. COMPARISON: None FINDINGS: A single live intrauterine fetus is seen measuring 19 weeks 6 days by composite measurements with sonographic EDC of 11/30/2022. The fetus is in transverse orientation with head on the maternal left. heart rate was 150 bpm. Amniotic fluid is 8.2 cm. The placenta is posterior and somewhat low lying. Cervical length is 5.3 cm. Distance from the placental tip to the internal os was 2.5 cm. Amniotic fluid showed normal-appearing configuration. There is no free fluid. survey showed normal-appearing kidneys and bladder. Normal-appearing stomach was seen. Intracranial ventricles appear normal. Four-chamber heart view appeared normal. Views of the spine appear unremarkable. Three-vessel cord and cord insertion appear normal. Biometrical measurements are as follows: Biparietal 4.49 cm, age 19 weeks 5 days. Head circumference 17.43 cm, age 20 weeks 0 days. Abdominal circumference 14.42 cm, age 19 weeks 6 days. Femur length 3.09 cm, age 19 weeks 5 days. Sonographic estimate age: 19 weeks 6 days. Sonographic estimated date of delivery: 11/30/2022. Estimated Weight: 307 gm (+/- 45 gm). LMP percentile: 29%. heart rate: 150 beats per minute. number: 1 of 1. IMPRESSION: Single live intrauterine fetus measuring 19 weeks 6 days in size with no detectable sonographic abnormalities. Placenta is somewhat low lying, consider followup later in to determine if this resolves. Dictated by: Dictated on workstation # [id number]
== END ==
LOC: RAD 15:15
PROVIDERS: ATTEND Nurse Practitioner Women's Health
DX: Z34.02 Encounter for supervision of normal first pregnancy, second trimester (principal); Z3A.19 19 weeks gestation of pregnancy
CPT/HCPCS: 76805

== ENCOUNTER 2022-07-18 19:21 | Outpatient (CLI) | payer BC, MEDICAID ==
[~2022-07-18] VITALS: Ht 162.6 cm; Wt 111.8 kg
[2022-07-18 20:00] LABS: BILIRUBIN,URINE NEGATIVE (NEGATIVE); CLARITY,URINE CLEAR; COLOR,URINE YELLOW; GLUCOSE, URINE (UA) NEGATIVE (NEGATIVE); KETONES,URINE NEGATIVE (NEGATIVE); LEUKOCYTE ESTERASE ,URINE NEGATIVE (NEGATIVE); NITRITE,URINE NEGATIVE (NEGATIVE); PROTEIN,URINE NEGATIVE (NEGATIVE)
[2022-07-18 20:04] VITALS: BP 121/64
[2022-07-18 20:13] LABS: AMORPHOUS SEDIMENT,UR LARGE AMOR PHOSPHATE /LPF; BACTERIA,URINE FEW /HPF; RBC,URINE 0-2 /HPF; WBC,URINE 0-2 /HPF
[2022-07-18] MEDS ORDERED: PREN-37 PO (20:23)
[2022-07-18 20:38] VITALS: BP 111/64
== END 2022-07-18 20:38 ==
LOC: LDRP 19:21 → WSo 19:21
PROVIDERS: ATTEND Obstetrics & Gynecology
DX: O26.852 Spotting complicating pregnancy, second trimester (principal); O26.892 Other specified pregnancy related conditions, second trimester; R10.2 Pelvic and perineal pain; M54.9 Dorsalgia, unspecified; Z3A.21 21 weeks gestation of pregnancy
CPT/HCPCS: 81000

== ENCOUNTER 2022-09-14 12:38 | Outpatient (CLI) | payer BC, MEDICAID ==
[~2022-09-14] VITALS: Ht 165.1 cm; Wt 115.5 kg
[~2022-09-14 12:38] MED LIST changes: +PREN-37 PO
[2022-09-14 13:19] VITALS: BP 136/74
--- NOTE | 2022-09-15 08:40 | OB Triage Report ---
Standard Progress Note Progress Notes/Assess & Plan Date Seen by a Provider: Sep 15, 2022 Time Seen by a Provider: 18:00 Expected Date of Delivery: Nov 29, 2022 Gestational Age in Weeks: 29 Gestational Age in Days: 1 LMP/DINH Comment: As above Progress/Assessment & Plan Patient is 29 1/7 weeks presents to L&D with complaint of decreased movement, no other complaints. VSS, noted to have Reactive FHR tracing by OB RN for <32 weeks. Released from L&D with labor and kick count precautions. Follow up routine OB, sooner prn. Final Diagnosis 29 weeks Not in labor Diagnosis/Problems Diagnosis/Problems (1) 29 weeks gestation of Assessment & Plan: 29 weeks gestation Decreased movement, movement noted by RN during monitoring. Not in labor: released to home with labor and kick count precautions. EMMY BOBO DO Sep 15, 2022 08:39
== END 2022-09-14 13:57 | disposition home or self-care (01) ==
LOC: WSo 12:38 → LDRP 12:38 → WSo 13:57
PROVIDERS: ATTEND Obstetrics & Gynecology
DX: O36.8190 Decreased fetal movements, unspecified trimester, not applicable or unspecified (principal); Z3A.00 Weeks of gestation of pregnancy not specified
CPT/HCPCS: 99213

== ENCOUNTER 2022-10-15 06:53 | Outpatient (CLI) | payer BC, MEDICAID ==
[~2022-10-15] VITALS: Ht 165 cm; Wt 120.9 kg
[2022-10-15 08:00] VITALS: BP 115/66
--- NOTE | 2022-10-15 08:38 | OB Triage Report ---
Standard Progress Note Progress Notes/Assess & Plan Date Seen by a Provider: October 15, 2022 Time Seen by a Provider: 08:10 Expected Date of Delivery: Nov 29, 2022 Gestational Age in Weeks: 33 Gestational Age in Days: 3 LMP/DINH Comment: DINH 11/29/22 34wk EGA Progress/Assessment & Plan This presents to L&D with c/o decreased FM she denies LOF, VB or CTXS FHT 145 Reactive TOCOs none Final Diagnosis IUP @ 34wk Reassuring FHT Diagnosis/Problems Diagnosis/Problems (1) 34 weeks gestation of Status: Acute Assessment & Plan: IUP @ 34w DC to home kick counts d/w pt Keep next appt. (2) Decreased movement Assessment & Plan: FHR reactive and reassuring DC to home Qualifiers: Qualified Codes: O36.8130 - Decreased movements, third trimester, not applicable or unspecified GARRETT DIXON DO October 15, 2022 08:38
== END 2022-10-15 08:44 | disposition home or self-care (01) ==
LOC: WSo 06:53 → LDRP 06:54 → WSo 08:44
PROVIDERS: ATTEND Obstetrics & Gynecology
DX: O36.8130 Decreased fetal movements, third trimester, not applicable or unspecified (principal); Z3A.34 34 weeks gestation of pregnancy
CPT/HCPCS: 99213

== ENCOUNTER → 2022-10-29 | Outpatient (CLI) | payer BC, MEDICAID ==
[2022-10-29 10:57] LABS: BASOPHILS % (AUTO) 0 % (0-10); EOSINOPHILS # (AUTO) 0.1 10^3/uL (0.0-0.3); EOSINOPHILS % (AUTO) 1 % (0-10); HEMATOCRIT 34 % (35-52); HEMOGLOBIN 10.8 g/dL (11.5-16.0); LYMPHOCYTES # (AUTO) 2.9 10^3/uL (1.0-4.0); LYMPHOCYTES % (AUTO) 24 % (12-44); MEAN CORPUSCULAR HEMOGLOBIN 25 pg (25-34); MEAN CORPUSCULAR HGB CONC 32 g/dL (32-36); MEAN CORPUSCULAR VOLUME 78 fL (80-99); MEAN PLATELET VOLUME 10.7 fL (9.0-12.2); MONOCYTES # (AUTO) 0.6 10^3/uL (0.0-1.0); MONOCYTES % (AUTO) 5 % (0-12); NEUTROPHILS # (AUTO) 8.2 10^3/uL (1.8-7.8); NEUTROPHILS % (AUTO) 69 % (42-75); PLATELET COUNT 265 10^3/uL (130-400); WHITE BLOOD COUNT 11.8 10^3/uL (4.3-11.0)
[2022-10-29 11:18] LABS: ALBUMIN 3.4 GM/DL (3.2-4.5); BILIRUBIN,TOTAL 0.3 MG/DL (0.1-1.0); CALCIUM 9.1 MG/DL (8.5-10.1); CREATININE SERUM 0.71 MG/DL (0.60-1.30); POTASSIUM 3.7 MMOL/L (3.6-5.0); TOTAL PROTEIN 7.4 GM/DL (6.4-8.2); URIC ACID 4.3 MG/DL (2.6-7.2)
== END ==
LOC: LABNPT 10:50
PROVIDERS: ATTEND Obstetrics & Gynecology
DX: R80.9 Proteinuria, unspecified (principal)
CPT/HCPCS: 80053; 82570; 84156; 84550; 85025

== ENCOUNTER 2022-10-31 20:47 | Outpatient (CLI) | payer BC, MEDICAID ==
[~2022-10-31] VITALS: Ht 165 cm; Wt 122.6 kg
[2022-10-31 21:15] VITALS: BP 116/70
[2022-10-31 21:45] LABS: BILIRUBIN,URINE NEGATIVE (NEGATIVE); CLARITY,URINE CLEAR; COLOR,URINE YELLOW; GLUCOSE, URINE (UA) NEGATIVE (NEGATIVE); KETONES,URINE NEGATIVE (NEGATIVE); LEUKOCYTE ESTERASE ,URINE TRACE (NEGATIVE); NITRITE,URINE NEGATIVE (NEGATIVE); PH,URINE 7.5 (5-9); PROTEIN,URINE NEGATIVE (NEGATIVE)
[2022-10-31 21:57] LABS: BACTERIA,URINE TRACE /HPF; WBC,URINE 0-2 /HPF
[2022-10-31 21:58] LABS: AMORPHOUS SEDIMENT,UR MOD AMOR PHOSPHATE /LPF
--- NOTE | 2022-10-31 22:20 | OB Triage Report ---
Standard Progress Note Progress Notes/Assess & Plan Date Seen by a Provider: Oct 31, 2022 Time Seen by a Provider: 22:10 Expected Date of Delivery: Nov 29, 2022 Gestational Age in Weeks: 35 Gestational Age in Days: 6 LMP/DINH Comment: IUP@ 35w6d Progress/Assessment & Plan This 22yo presents to L&D @ 35w6d with c/o palpitations that are occuring 1-2x/day and a headache. She denies CP SOA CTX LOF VB. Pt had been seen by Cardiology no concerns noted. Pt had PIH labs 10/29/22 that were normal VSS AF FHT 150 Reactive TOCOs none PO2 100%on RA Pulse 110-120 Labs reviewed Final Diagnosis IUP @35w6d Palpitations-most likely physiologic Reassuring FHR DC to home Keep next appt. Diagnosis/Problems Diagnosis/Problems (1) 35 weeks gestation of Assessment & Plan: IUP @ 35w6d DC to home Keep next appt. (2) Tachycardia Assessment & Plan: Palpitations occurring 1-2 x per day Cardiology has seen pt precautions d/w pt (3) Headache Assessment & Plan: PIH labs nml Tylenol for HILL Precautions Keep next appt. GARRETT DIXON DO Oct 31, 2022 22:20
== END 2022-10-31 22:35 ==
LOC: LDRP 20:47 → WSo 20:47
PROVIDERS: ATTEND Obstetrics & Gynecology
DX: O99.413 Diseases of the circulatory system complicating pregnancy, third trimester (principal); O99.891 Other specified diseases and conditions complicating pregnancy; M54.50 Low back pain, unspecified; R51.9 Headache, unspecified; Z3A.35 35 weeks gestation of pregnancy
CPT/HCPCS: 81000; 99213

== ENCOUNTER 2022-12-04 07:00 | Inpatient (IN) | payer BC, MEDICAID ==
[~2022-12-04] VITALS: Ht 162 cm; Wt 126.7 kg
[2022-12-04] VITALS (65 sets, daily range): BP systolic 95–180; BP diastolic 50–99
--- OUTSIDE RECORDS SUMMARY | 2022-12-04 07:09 | XMS REPORT ---
Author Author [facility] Address Unknown Phone Unavailable Care Team Providers [employer] Executive Director Name Role Phone LINE, MAGO Unavailable PROBLEMS Type Condition ICD9-CM Code [id number] Code Onset Dates Condition S tatus W/U Status Risk SNOMED Code Notes Problem BMI 40.0-44.9, adult Z68.41 confirmed [id number] Problem Irregular menses N92.6 confirmed 801 48629 Problem Absent periods N91.2 confirmed 32438 001 Problem Anxiety F41.9 confirmed [id number] Problem ALEX (generalized anxiety disorder) F41.1 co nfirmed 73780417 Problem Gastro-esophageal reflux disease without esophagitis K21.9 confirmed [id number] ALLERGIES Allergen (clinical drug ingredient) Drug/Non Drug Allergy do cumented on EMR Reaction Allergy Type Onset Date Status Cinnamon([facility] Code:16608-21565) Unknown Drug Allergy Active sulfacetamide Sulfacetamide Sodium(ND Code:[address]-62) Unknown Drug Allergy Active [place] Flavor(ND Code:58971-18287) Unknown Drug Allergy Active ENCOUNTERS from 1999 to 2022-11-04 Encounter Location Date Provider Diagnosis [facility] [address] [facility] [id number] [place] [address] Oct, MAGO LINE Acute suppurative ot itis media of left ear without spontaneous rupture of tympanic membrane, recurrence not specified H66.002 IMMUNIZATIONS Vaccine Route Administration Date Status 1st Booster MODERNA Bivalent, COVID-19, 0.5mL IM Intramuscular S ept 2021 Administered PRIVATE FLU 22-23 (FLULAVAL) AGE 6MO AND UP IM Intramuscular Sep t 30, 2022 Administered PRIVATE FLULAVAL QUAD 0.5ML (6 MO AND UP) 2019 IM Intramuscular Mar 12, 2018 Administered PRIVATE TDAP (ADACEL) Unknown October 02, 2011 Pending pedvaxhib (history) Unknown August 31, 2004 Administered COVID-19 Moderna (history) Unknown Jul 28, 2020 Admin istered COVID-19 Moderna (history) Unknown August 31, 2020 Admin istered PRIVATE FLULAVAL QUAD 0.5ML (6 MO AND UP) 2020 IM Intramuscular Feb 22, 2021 Administered Influenza (split), preservative free, 6-35 months Unknown Mar 30, 2010 Administered PRIVATE VARICELLA Unknown October 02, 2011 Pending polio ipv (history) Unknown September 23, 2000 Administered polio ipv (history) Unknown Feb 14, 2000 Administered polio ipv (history) Unknown 1999 Administered mmr-II (history) Unknown August 31, 2004 Administered mmr-II (history) Unknown September 23, 2000 Administered hepatitis b pediatric (history) Unknown September 23, 2000 Administered hepatitis b pediatric (history) Unknown Feb 14, 2000 Administered hepatitis b pediatric (history) Unknown 1999 Administered infanrix dtap (history) Unknown Feb 14, 2000 Administ ered infanrix dtap (history) Unknown September 23, 2000 Administ ered infanrix dtap (history) Unknown November 20, 2001 Administ ered infanrix dtap (history) Unknown August 31, 2004 Administ erecathie polio ipv (history) Unknown August 31, 2004 Administered PRIVATE FLULAVAL QUAD 0.5ML (6 MO AND UP) 2018 IM Intramuscular Mar 18, 2019 Administered infanrix dtap (history) Unknown 1999 Administ ered pedvaxhib (history) Unknown 1999 Administered pedvaxhib (history) Unknown Feb 14, 2000 Administered pedvaxhib (history) Unknown September 23, 2000 Administered SOCIAL HISTORY Sex Assigned At : Social History Observation Description Sex Assigned At Unknown Alcohol Screen (Audit-C) Question Answer Notes Did you have a drink containing alcohol in the past year? No Points 0 Interpretation Negative Sexual History Question Answer Notes Had sex in the past 12 months (vaginal, oral, or anal)? Yes Last menstrual period 06/26/2021 Have you ever had a Sexually transmitted disease? No Prevention strategies discussed: Other with Men only Use protection? No PHQ2 Question Answer Notes In the last 2 weeks, how often have you had little interest or pleasure in doing things? Not at all In the last 2 weeks, how often have you been feeling down, depressed, or hopeless? Not at all Total PHQ2 Score 0 Tobacco use other than smoking: Question Answer Notes Are you an other tobacco user? No REASON FOR REFERRAL No Information VITAL SIGNS Height 64 in Oct, Weight 250 lbs Oct, Weight-kg 113.4 kg Oct, Temperature 98 degrees Fahrenheit Oct, Heart Rate 107 bpm Oct, Respiratory Rate 18 bpm Oct, BMI 42.91 kg/m2 Oct, Blood pressure systolic 108 mmHg Oct, Blood pressure diastolic 62 mmHg Oct, MEDICATIONS Medication SIG (Take, Route, Frequency, Duration) Notes Start Da te End Date Status Multivitamin - 1 tablet Orally Once a day Active PROCEDURES No Information RESULTS No Results REASON FOR VISIT left ear c/o-pt states she believes she has an ear infection. States she had one within the last 2 weeks in her right ear-used ear ache drops and heating pad and eventually went away on its own. States left ear now feels full, has shooting pains and some drainage out of her ear, pain in left side of face when she opens mouth., Meds verified with pt in office., LMP 11/07/2020 MEDICAL (GENERAL) HISTORY Type Description Date Medical History seasonal allergies Medical History anxiety Medical History miscarriage Surgical History Age 10- tooth pulled Surgical History dilatation and curettage 10/21 Goals Section No Information Health Concerns No Information MEDICAL EQUIPMENT No Information MENTAL STATUS No Information FUNCTIONAL STATUS No Information ASSESSMENTS Encounter Date Diagnosis Assessment Notes Treatment Notes Treatm ent Clinical Notes Oct, Acute suppurative otitis med ia of left ear without spontaneous rupture of tympanic membrane, recurrence not specified (ICD-10 - H66.002) Ear Infection (Otitis Media): Care Instructions material was published PLAN OF TREATMENT Treatment Notes Assessment Notes Clinical Notes Acute suppurative otitis media of left e ar without spontaneous rupture of tympanic membrane, recurrence not specified Ear Infection (Otitis Media): Care Instructions material was published Next Appt Details prn Reason: Insurance Providers Payer Name Payer Address Payer Phone Insured Name Patient Relati onship to Insured Coverage Start Date Coverage End Date Subscriber Number Group Jenifer [employer] [facility] [address] [facility] [phone] Aga Orellana Self - patient is the insured [id number] COVID19 HRSA Uninsured [employer] [facility] A ttention CARES Act Provider Relief Fund [address] [address] [facility] [address] Aga Orellana Self - patient is the insured 2019 2019 [id number] [facility] Invoice [address] [facility] [address] Aga Orellana Self - patient is the insured [id number] [facility] Missing insurance scan copy of card into pt doc Aga Orellana Self - patient is the insured [id number] [facility] [address] [facility] [address] Aga Orellana Self - patient is the insured 2021 [employer] [place] [address] [facility] [address] Aga Orellana Self - patient is the insured [id number] [employer] [address] [facility] [address] Aga Orellana Self - patient is the insured 2021 [id number]
[2022-12-04] MEDS ORDERED: D5 LR IV SOLUTION 1,000 ML IV ONE (07:29)
--- NOTE | 2022-12-04 07:29 | History & Physical-OB ---
OB - Chief Complaint & HPI Date/Time Date of Admission: Date of Admission: Dec 04, 2022 at 07:00 Date seen by a Provider: Dec 04, 2022 Time Seen by a Provider: 07:25 Chief Complaint/History OB-Reason for Admission/Chief: Induction of Labor Hx : 2 Hx Para: 0 Expected Date of Delivery: Nov 29, 2022 Gestational Age in Weeks: 40 Gestational Age in Days: 5 Indication for induction: post dates Admission Nurse Assessment Rev: Yes History of Labs A pos Antibody neg RI RPR NR HBsAg NR HIV NR GC neg GBS neg Allergies and Home Medications Allergies Coded Allergies: Sulfa (Sulfonamide Antibiotics) (Verified Allergy, Unknown, Rash, 08/28/21) States the Sulfas in shampoo give her a rash Patient Home Medication List Home Medication List Reviewed: Yes Vit/Iron Fumarate/FA ( Tablet) 27 Mg Iron-800 Mcg Tablet, 1 EACH PO DAILY, (Reported) Entered as Reported by: ELIJAH BADILLO on 07/18/222022 OB - History Hx of Present Care: Yes Ultrasounds: Normal mid trimester US Obstetrical Complications: None Medical Complications: None Patient Past Medical History SMA carrier status NC otherwise Social History/Family History 2nd Hand Smoke Exposure: No Immunizations First/Initial COVID19 Vaccine: DID RECEIVE, UNK WHEN Second COVID19 Vaccination: DID RECEIVEN, UNK WHEN Third COVID19 Vaccination Date: DID RECEIVE, UNK WHEN Tetanus Booster (TDap): Unknown OB - Admission Exam Physical Exam HEENT: NCAT Heart: Rhythm Normal Lungs: Clear Abdomen: Gravid Extremities: Normal Reflexes: Normal Cervical Dilatation: 3cm Effacement: 75% Station: -1 Membranes: Intact Heart Rate: 130's Accelerations: Accelerations Present Decelerations: No Decelerations Short Term Variability: Present Chcf Variability: Average (6-25) Contractions on Admission: 6-10 Minutes Apart Intensity: Mild Sofia Scoring Tool (Modified) Dilation (cm): 3-4cm (2) Effacement (%): 51-79% (2) Descent/Station: -1,0 (2) Cervix Consistency: Soft (2) Cervix Position: Anterior (2) Subtract 1 point for: Nulliparity (-1) Sofia Score: 9 OB - Assessment/Plan/Diagnosis Assessment Assessment: induction of labor Admission Dx 22 yo @ 40 weeks IOL GBS neg Admission Status: Inpatient Order (span 2 midnights) Reason for Inpatient Admission: IOL at 40 weeks Plan Plan: Induction Induction Method: NUNO MCALLISTER DO Dec 04, 2022 07:29
[2022-12-04] MEDS ORDERED: OXYTOCIN PRE-MIX DRIP 500 ML IV SCH (07:30)
[2022-12-04] MEDS: D5 LR IV SOLUTION 1,000 ML IV SCH ×2 (07:59→15:24)
[2022-12-04 08:10] LABS: BASOPHILS % (AUTO) 0 % (0-10); EOSINOPHILS # (AUTO) 0.1 10^3/uL (0.0-0.3); EOSINOPHILS % (AUTO) 1 % (0-10); HEMATOCRIT 32 % (35-52); HEMOGLOBIN 9.9 g/dL (11.5-16.0); LYMPHOCYTES # (AUTO) 2.9 10^3/uL (1.0-4.0); LYMPHOCYTES % (AUTO) 24 % (12-44); MEAN CORPUSCULAR HEMOGLOBIN 23 pg (25-34); MEAN CORPUSCULAR HGB CONC 31 g/dL (32-36); MEAN CORPUSCULAR VOLUME 73 fL (80-99); MEAN PLATELET VOLUME 10.8 fL (9.0-12.2); MONOCYTES # (AUTO) 0.7 10^3/uL (0.0-1.0); MONOCYTES % (AUTO) 6 % (0-12); NEUTROPHILS # (AUTO) 8.4 10^3/uL (1.8-7.8); NEUTROPHILS % (AUTO) 69 % (42-75); PLATELET COUNT 266 10^3/uL (130-400); WHITE BLOOD COUNT 12.1 10^3/uL (4.3-11.0)
[2022-12-04] MEDS ORDERED: fentaNYL 2 mcg/ml BUPIVA 0.125 100 ML ONE (10:20)
[2022-12-04] MEDS ORDERED: LACTATED RINGERS 1,000 ML IV ONE ×2 (10:20→13:15)
[2022-12-04] MEDS ORDERED: fentaNYL INJ 100 MCG/2 ML AMP ONE (10:41)
[2022-12-04] MEDS ORDERED: BUPIVACAINE 0.25% 10 ML (SENSORCAINE) VIAL ONE (10:41)
[2022-12-04] MEDS: fentaNYL 2 mcg/ml BUPIVA 0.125 100 ML EPI SCH ×2 (11:10→18:55)
[2022-12-04] MEDS ORDERED: ONDANSETRON 4 MG/2 ML (SDV) Z0FRAN IV PRN (13:15)
[2022-12-04] MEDS ORDERED: CATHETER FLUSH 10 ML SYR IV PRN (13:15)
[2022-12-04] MEDS ORDERED: diphenhydrAMINE 50 MG/ML INJ (BENADRYL) IV PRN (13:15)
[2022-12-04] MEDS ORDERED: NALOXONE 0.4 MG/ML 1 ML (NARCAN) VIAL IV PRN ×2 (13:15→23:30)
[2022-12-04] MEDS: CATHETER FLUSH 10 ML SYR IV SCH (14:00)
[2022-12-04] MEDS ORDERED: OXYTOCIN PRE-MIX DRIP 500 ML IV ONE (22:11)
[2022-12-04] MEDS ORDERED: LIDOCAINE/EPI 2% 1:200,00 (XYLOCAINE) 20 ML VIAL ONE (22:11)
[2022-12-04] MEDS: OXYTOCIN PRE-MIX DRIP 500 ML IV SCH ×2 (23:09→23:30)
[2022-12-04] MEDS ORDERED: BENZOCAINE/MENTHOL (DERMOPLAST) 56 ML CAN TP PRN (23:30)
[2022-12-04] MEDS ORDERED: TETANUS,DIPTH,PERTUSS P/F (BOOSTRIX) 0.5 ML VIAL IM ONE (23:30)
[2022-12-04] MEDS ORDERED: HYDROcodone/APAP 5 MG/325 MG (LORTAB) TAB PO PRN (23:30)
[2022-12-04] MEDS ORDERED: WITCH HAZEL(TUCKS) 40 EA JAR TOP PRN (23:30)
[2022-12-04] MEDS ORDERED: MEASLES,MUMPS,RUBELLA 1 EA INJ SQ ONE (23:30)
[2022-12-04] MEDS ORDERED: DIBUCAINE 1% OINTMENT 28 GM TUBE TOP PRN (23:30)
--- NOTE | 2022-12-04 23:33 | OB Labor & Delivery Record ---
L&D History Date of Service Date of Service: Dec 04, 2022 History Expected Date of Delivery: Nov 29, 2022 Gestational Age in Weeks: 40 Hx : 2 Hx Para: 0 Complications Events: Routine care Operative Indications (Cesarea: N/A-Vaginal Delivery Intrapartal Events: None L&D Stage1 Stage One Onset of Labor - Date: Dec 04, 2022 Monitors and Tracing Monitor Mode: Internal Heart Rate: 150 Monitor Decelerations: None Station: -2 Short Term Variability: Present Presentation: Vertex Vital Signs VS - Last 72 Hours, by Label 12/04/22 12/04/22 12/04/22 12/04/22 07:30 08:00 08:30 08:45 Temp 36.1 Pulse 111 92 125 115 Resp 18 18 18 18 B/P (MAP) 124/99 (107) 105/66 (79) 112/76 (88) 134/90 (105) Pulse Ox 99 99 O2 Delivery Room Air Room Air Room Air Room Air 12/04/22 12/04/22 12/04/22 12/04/22 08:58 09:00 09:15 09:30 Temp 36.1 Pulse 139 99 94 102 Resp 18 18 18 18 B/P (MAP) 134/84 (101) 141/88 (105) 139/81 (100) Pulse Ox 98 O2 Delivery Room Air Room Air Room Air Room Air 12/04/22 12/04/22 12/04/22 12/04/22 09:45 10:00 10:15 10:30 Pulse 105 108 87 106 Resp 18 18 18 18 B/P (MAP) 136/75 (95) 128/73 (91) 140/81 (100) 142/84 (103) O2 Delivery Room Air Room Air Room Air Room Air 12/04/22 12/04/22 12/04/22 12/04/22 10:45 10:50 10:55 11:00 Pulse 108 116 105 107 Resp 18 18 18 18 B/P (MAP) 128/61 (83) 137/66 (89) 162/98 (119) 148/67 (94) Pulse Ox 100 100 100 O2 Delivery Room Air Room Air Room Air Room Air 12/04/22 12/04/22 12/04/22 12/04/22 11:05 11:10 11:15 11:20 Pulse 115 100 96 102 Resp 18 18 18 18 B/P (MAP) 143/84 (103) 131/76 (94) 135/75 (95) 140/72 (94) Pulse Ox 100 100 97 O2 Delivery Room Air Room Air Room Air Room Air 12/04/22 12/04/22 12/04/22 12/04/22 11:25 11:30 11:35 11:40 Pulse 115 103 97 91 Resp 18 18 18 18 B/P (MAP) 136/80 (98) 124/61 (82) 109/66 (80) 100/50 (67) Pulse Ox 100 100 100 100 O2 Delivery Room Air Room Air Room Air Room Air 12/04/22 12/04/22 12/04/22 12/04/22 11:45 11:50 11:55 12:00 Pulse 116 115 91 104 Resp 18 18 18 18 B/P (MAP) 128/75 (92) 129/73 (91) Pulse Ox 100 100 100 100 O2 Delivery Room Air Room Air Room Air Room Air 12/04/22 12/04/22 12/04/22 12/04/22 12:05 12:10 12:15 12:20 Pulse 99 142 114 105 Resp 18 18 18 18 B/P (MAP) 125/69 (87) 167/74 (105) Pulse Ox 97 100 100 O2 Delivery Room Air Room Air Room Air Room Air 12/04/22 12/04/22 12/04/22 12/04/22 12:24 12:29 12:35 12:39 Pulse 103 91 111 109 Resp 18 18 18 18 B/P (MAP) 133/85 (101) Pulse Ox 98 100 100 100 O2 Delivery Room Air Room Air Room Air Room Air 12/04/22 12/04/22 12/04/22 12/04/22 12:44 12:50 12:54 12:59 Pulse 105 93 84 90 Resp 18 18 18 18 B/P (MAP) 129/87 (101) Pulse Ox 100 100 100 100 O2 Delivery Room Air Room Air Room Air Room Air 12/04/22 12/04/22 12/04/22 12/04/22 13:07 13:15 13:24 13:30 Pulse 87 98 88 87 Resp 18 18 18 18 B/P (MAP) 134/63 (86) 176/86 (116) Pulse Ox 100 94 100 99 O2 Delivery Room Air Room Air Room Air Room Air 12/04/22 12/04/22 12/04/22 12/04/22 13:35 13:40 13:44 13:50 Temp 36.8 Pulse 94 95 87 91 Resp 18 18 18 18 B/P (MAP) 180/90 (120) 134/77 (96) 137/73 (94) Pulse Ox 100 100 100 100 O2 Delivery Room Air Room Air Room Air Room Air 12/04/22 12/04/22 12/04/22 12/04/22 13:55 13:59 14:06 14:10 Pulse 82 85 94 93 Resp 18 18 18 18 B/P (MAP) 135/77 (96) Pulse Ox 100 100 100 99 O2 Delivery Room Air Room Air Room Air Room Air 12/04/22 12/04/22 12/04/22 12/04/22 14:15 14:20 14:25 14:30 Pulse 98 88 117 103 Resp 18 18 18 18 B/P (MAP) 133/80 (97) Pulse Ox 100 100 99 100 O2 Delivery Room Air Room Air Room Air Room Air 12/04/22 12/04/22 12/04/22 12/04/22 14:35 14:40 14:45 14:50 Pulse 91 89 105 87 Resp 18 18 18 18 B/P (MAP) 144/82 (102) 138/90 (106) Pulse Ox 100 100 100 100 O2 Delivery Room Air Room Air Room Air Room Air 12/04/22 12/04/22 12/04/22 12/04/22 14:55 15:00 15:08 15:14 Pulse 99 91 88 101 Resp 18 18 18 18 Pulse Ox 100 100 100 100 O2 Delivery Room Air Room Air Room Air Room Air 12/04/22 12/04/22 12/04/22 12/04/22 15:20 15:25 15:28 15:35 Pulse 79 130 139 93 Resp 18 18 18 18 Pulse Ox 100 100 100 100 O2 Delivery Room Air Room Air Room Air Room Air 12/04/22 12/04/22 12/04/22 12/04/22 15:40 15:45 15:50 15:55 Pulse 105 97 97 106 Resp 18 18 18 18 B/P (MAP) 111/56 (74) Pulse Ox 100 100 100 93 O2 Delivery Room Air Room Air Room Air Room Air 12/04/22 12/04/22 12/04/22 12/04/22 16:00 16:05 16:10 19:05 Pulse 96 121 104 87 Resp 18 18 18 18 B/P (MAP) 115/53 (73) 132/89 (103) Pulse Ox 100 100 100 100 O2 Delivery Room Air Room Air Room Air Room Air 12/04/22 12/04/22 12/04/22 12/04/22 19:19 19:34 19:48 20:03 Pulse 80 90 92 115 Resp 18 18 18 18 B/P (MAP) 120/74 (89) 123/72 (89) 118/72 (87) 116/72 (87) Pulse Ox 100 100 99 99 O2 Delivery Room Air Room Air Room Air Room Air 12/04/22 12/04/22 12/04/22 12/04/22 20:19 20:48 21:04 21:19 Pulse 93 106 96 100 Resp 18 18 18 18 B/P (MAP) 122/64 (83) 110/63 (79) 116/70 (85) 139/69 (92) Pulse Ox 100 O2 Delivery Room Air Room Air Room Air Room Air Rupture of Membranes Amniotic Membrane Rupture Time: 0819 Amniotic Membrane Fluid Desc.: Clear Vaginal Bleeding Description: Normal Show Induction/Anesthesia Epidural Cath Placement - Time: 110 Progress/Notes Patient admitted post dates for IOL. AROM performed followed by Pitocin augmentation she progressed to complete and + 2 station. L&D Stage2 Stage Two Stage II Date: Dec 04, 2022 Monitors and Tracing Monitor Mode: External Heart Rate: 150 Monitor Accelerations: Uniform Monitor Decelerations: Variable Detention Variability: Average (6-10) Short Term Variability: Present Position: Right Occiput Anterior Presentation: Vertex Cord Descript/Complications Cord Vessel Description: 3 Vessels Complications Patient progressed to + 2-3 station where pushing became ineffective as well as recurrent variable decels noted to the 80s with reflex tachycardia noted after. Due to ineffective maternal pushing I discussed with patient assistance with low vacuum kiwi extraction. scalp presentation confirmed and kiwi suction cup placed over flexion point. She then was encourage to push with the next contraction,and 500 mmHg applied to handpiece. With gentle extension the head was delivered over midline laceration. Nuchal cord reduced after kiwi suction was released. Remainder of delivery uncomplicated. Delivery Type Infant Delivery Method: Low Vacuum Extraction Anterior Shoulder: Left Episiotomy/Perineal Laceration Laceraction(s)/Extensions: Yes Episiotomy Description: Midline, Perineal Extension/lac, 3rd degree (midline perineal laceration repaired using 3-0 and 2-0 vicryl suture in usual fashion.) Condition of Delivery 1 minute Comment: 7 5 minute Comment: 8 Notes Live male infant weight 8lbs 14 oz. Condition of Condition of Infant: Living Exam: No Observed Abnormalities Resuscitation Resuscitation: N/A - Spontaneous Resp L&D Stage3 Stage Three Stage III Date: Dec 04, 2022 Pictocin Pitocin Administration mu/min: 14 Pitocin ml/hr: 2 Pitocin Administration Comment: 30 mu wide open after delivery of placenta Placenta Delivery Placenta Delivery: Spontaneous Delivery Summary Summary Estimated blood loss (mL): 400 Attending at delivery: Nuno Garcia DO Condition of Delivery Examined: Cervix Examined, Uterus Explored Post Hemorrhage: No Condition of Mother stable Condition of Infant (s) stable NUNO GARCIA DO Dec 04, 2022 23:33
[2022-12-05] VITALS (11 sets, daily range): BP systolic 92–140; BP diastolic 54–77
[2022-12-05] MEDS ORDERED: IBUPROFEN 600 MG (MOTRIN) TAB PO ONE (02:12)
[2022-12-05] MEDS: IBUPROFEN 600 MG (MOTRIN) TAB PO SCH ×4 (02:30→21:35)
[2022-12-05] MEDS ORDERED: LIDOCAINE/EPI 2% 1:200,00 (XYLOCAINE) 10 ML VIAL INJ ONE (04:30)
[2022-12-05] MEDS ORDERED: CATHETER FLUSH 10 ML SYR IV SCH (06:00)
[2022-12-05 06:02] LABS: BASOPHILS % (AUTO) 0 % (0-10); EOSINOPHILS % (AUTO) 0 % (0-10); HEMATOCRIT 24 % (35-52); HEMOGLOBIN 7.4 g/dL (11.5-16.0); LYMPHOCYTES # (AUTO) 2.2 10^3/uL (1.0-4.0); LYMPHOCYTES % (AUTO) 12 % (12-44); MEAN CORPUSCULAR HEMOGLOBIN 23 pg (25-34); MEAN CORPUSCULAR HGB CONC 31 g/dL (32-36); MEAN CORPUSCULAR VOLUME 74 fL (80-99); MEAN PLATELET VOLUME 11.2 fL (9.0-12.2); MONOCYTES % (AUTO) 5 % (0-12); NEUTROPHILS # (AUTO) 15.4 10^3/uL (1.8-7.8); NEUTROPHILS % (AUTO) 82 % (42-75); PLATELET COUNT 232 10^3/uL (130-400); WHITE BLOOD COUNT 18.7 10^3/uL (4.3-11.0)
--- NOTE | 2022-12-05 07:44 | Postpartum Progress Note ---
Note Note Day # 1 Subjective: Patient is without complaints. Ambulating, voiding. Tolerating a regular diet without nausea or vomiting. Normal lochia. Pain is well controlled with oral pain medications. Objective: Physical Exam: General - Alert and oriented, no apparent distress Abdomen - Soft, appropriately tender to palpation, non-distended, fundus firm at umbilicus Extremities - no edema, negative Adeline's bilaterally Assessment: PPD 1 VAVD Acute blood loss anemia Plan: Routine care. Encourage breast feeding. Encourage ambulation. Ferrous sulfate supplementation. Plan for discharge tomorrow Vitals - Labs Vital Signs - I&O Vital Signs Date Time Temp Pulse Resp B/P (MAP) Pulse Ox O2 Delivery O2 Flow Rate FiO2 12/05/22 03:20 86 20 122/70 (87) 100 Room Air 12/05/22 02:20 101 18 128/77 (94) 100 Room Air 12/05/22 01:35 96 18 126/61 (82) Room Air 12/05/22 01:31 133 18 124/54 (77) Room Air 12/05/22 00:33 126 18 92/59 (70) Room Air 12/05/22 00:18 125 18 108/57 (74) Room Air 12/05/22 00:03 117 18 107/55 (72) Room Air 12/04/22 23:48 133 18 101/64 (76) Room Air 12/04/22 23:33 134 18 101/56 (71) Room Air 12/04/22 23:18 117 18 122/67 (85) Room Air 12/04/22 22:50 150 18 120/73 (89) Room Air 12/04/22 22:33 150 18 131/65 (87) Room Air 12/04/22 21:19 100 18 139/69 (92) Room Air 12/04/22 21:04 96 18 116/70 (85) Room Air 12/04/22 20:48 106 18 110/63 (79) Room Air 12/04/22 20:19 93 18 122/64 (83) 100 Room Air 12/04/22 20:03 115 18 116/72 (87) 99 Room Air 12/04/22 19:48 92 18 118/72 (87) 99 Room Air 12/04/22 19:34 90 18 123/72 (89) 100 Room Air 12/04/22 19:19 80 18 120/74 (89) 100 Room Air 12/04/22 19:05 87 18 132/89 (103) 100 Room Air 12/04/22 16:10 104 18 100 Room Air 12/04/22 16:05 121 18 115/53 (73) 100 Room Air 12/04/22 16:00 96 18 100 Room Air 12/04/22 15:55 106 18 93 Room Air 12/04/22 15:50 97 18 111/56 (74) 100 Room Air 12/04/22 15:45 97 18 100 Room Air 12/04/22 15:40 105 18 100 Room Air 12/04/22 15:35 93 18 100 Room Air 12/04/22 15:28 139 18 100 Room Air 12/04/22 15:25 130 18 100 Room Air 12/04/22 15:20 79 18 100 Room Air 12/04/22 15:14 101 18 100 Room Air 12/04/22 15:08 88 18 100 Room Air 12/04/22 15:00 91 18 100 Room Air 12/04/22 14:55 99 18 100 Room Air 12/04/22 14:50 87 18 138/90 (106) 100 Room Air 12/04/22 14:45 105 18 100 Room Air 12/04/22 14:40 89 18 100 Room Air 12/04/22 14:35 91 18 144/82 (102) 100 Room Air 12/04/22 14:30 103 18 100 Room Air 12/04/22 14:25 117 18 99 Room Air 12/04/22 14:20 88 18 133/80 (97) 100 Room Air 12/04/22 14:15 98 18 100 Room Air 12/04/22 14:10 93 18 99 Room Air 12/04/22 14:06 94 18 135/77 (96) 100 Room Air 12/04/22 13:59 85 18 100 Room Air 12/04/22 13:55 82 18 100 Room Air 12/04/22 13:50 91 18 137/73 (94) 100 Room Air 12/04/22 13:44 36.8 87 18 134/77 (96) 100 Room Air 12/04/22 13:40 95 18 100 Room Air 12/04/22 13:35 94 18 180/90 (120) 100 Room Air 12/04/22 13:30 87 18 99 Room Air 12/04/22 13:24 88 18 176/86 (116) 100 Room Air 12/04/22 13:15 98 18 94 Room Air 12/04/22 13:07 87 18 134/63 (86) 100 Room Air 12/04/22 12:59 90 18 100 Room Air 12/04/22 12:54 84 18 100 Room Air 12/04/22 12:50 93 18 129/87 (101) 100 Room Air 12/04/22 12:44 105 18 100 Room Air 12/04/22 12:39 109 18 100 Room Air 12/04/22 12:35 111 18 133/85 (101) 100 Room Air 12/04/22 12:29 91 18 100 Room Air 12/04/22 12:24 103 18 98 Room Air 12/04/22 12:20 105 18 167/74 (105) 100 Room Air 12/04/22 12:15 114 18 100 Room Air 12/04/22 12:10 142 18 97 Room Air 12/04/22 12:05 99 18 125/69 (87) Room Air 12/04/22 12:00 104 18 100 Room Air 12/04/22 11:55 91 18 100 Room Air 12/04/22 11:50 115 18 129/73 (91) 100 Room Air 12/04/22 11:45 116 18 128/75 (92) 100 Room Air 12/04/22 11:40 91 18 100/50 (67) 100 Room Air 12/04/22 11:35 97 18 109/66 (80) 100 Room Air 12/04/22 11:30 103 18 124/61 (82) 100 Room Air 12/04/22 11:25 115 18 136/80 (98) 100 Room Air 12/04/22 11:20 102 18 140/72 (94) Room Air 12/04/22 11:15 96 18 135/75 (95) 97 Room Air 12/04/22 11:10 100 18 131/76 (94) 100 Room Air 12/04/22 11:05 115 18 143/84 (103) 100 Room Air 12/04/22 11:00 107 18 148/67 (94) 100 Room Air 12/04/22 10:55 105 18 162/98 (119) 100 Room Air 12/04/22 10:50 116 18 137/66 (89) 100 Room Air 12/04/22 10:45 108 18 128/61 (83) Room Air 12/04/22 10:30 106 18 142/84 (103) Room Air 12/04/22 10:15 87 18 140/81 (100) Room Air 12/04/22 10:00 108 18 128/73 (91) Room Air 12/04/22 09:45 105 18 136/75 (95) Room Air 12/04/22 09:30 102 18 139/81 (100) Room Air 12/04/22 09:15 94 18 141/88 (105) Room Air 12/04/22 09:00 99 18 134/84 (101) Room Air 12/04/22 08:58 36.1 139 18 98 Room Air 12/04/22 08:45 115 18 134/90 (105) Room Air 12/04/22 08:30 125 18 112/76 (88) Room Air 12/04/22 08:00 92 18 105/66 (79) 99 Room Air I & O 12/05/22 07:00 Intake Total 3000 ml Balance 3000 ml Labs Laboratory Tests 12/04/22 07:49: White Blood Count 12.1H, Red Blood Count 4.36, Hemoglobin 9.9L, Hematocrit 32L, Mean Corpuscular Volume 73L, Mean Corpuscular Hemoglobin 23L, Mean Corpuscular Hemoglobin Concent 31L, Red Cell Distribution Width 15.4H, Platelet Count 266, Mean Platelet Volume 10.8, Immature Granulocyte % (Auto) 1, Neutrophils (%) (Auto) 69, Lymphocytes (%) (Auto) 24, Monocytes (%) (Auto) 6, Eosinophils (%) (Auto) 1, Basophils (%) (Auto) 0, Neutrophils # (Auto) 8.4H, Lymphocytes # (Auto) 2.9, Monocytes # (Auto) 0.7, Eosinophils # (Auto) 0.1, Basophils # (Auto) 0.0, Immature Granulocyte # (Auto) 0.1, Syphilis Total Antibody Negative 12/05/22 05:29: White Blood Count 18.7H, Red Blood Count 3.22L, Hemoglobin 7.4#L, Hematocrit 24L , Mean Corpuscular Volume 74L, Mean Corpuscular Hemoglobin 23L, Mean Corpuscular Hemoglobin Concent 31L, Red Cell Distribution Width 15.6H, Platelet Count 232, Mean Platelet Volume 11.2, Immature Granulocyte % (Auto) 1, Neutrophils (%) (Auto) 82H, Lymphocytes (%) (Auto) 12, Monocytes (%) (Auto) 5, Eosinophils (%) (Auto) 0, Basophils (%) (Auto) 0, Neutrophils # (Auto) 15.4H, Lymphocytes # (Auto) 2.2, Monocytes # (Auto) 1.0, Eosinophils # (Auto) 0.0, Basophils # (Auto) 0.0, Immature Granulocyte # (Auto) 0.1 NUNO GARCIA DO Dec 05, 2022 07:44
--- NOTE | 2022-12-05 07:47 | Discharge Inst-Women's Service ---
Discharge Inst-Women's Serv Depart Medication/Instructions New, Converted or Re-Newed RX: Transmitted to Pharmacy Final Diagnosis PPD 1 VAVD Problems Reviewed?: Yes Consults/Follow Up Additional Follow Up: Yes Orders/Referrals Dr. Garcia in 6 weeks Activity Activity: Activity as Tolerated Driving Instructions: No Driving for 1 Week NO SMOKING: NO SMOKING Nothing Inside Vagina: No Douching, No [employer], No Tampons Diet Discharge Diet: No Restrictions Symptoms to Report to : Bleeding Excessive, Pain Increased, Fever Over 101 Degrees F, Vaginal Bleeding Increase, Questions/Concerns For Any Problems or Questions: Contact Your Physician NUNO GARCIA DO Dec 05, 2022 07:47
[2022-12-05] MEDS ORDERED: ACHD5005 PO (07:48)
[2022-12-05] MEDS ORDERED: IBUP-844 PO (07:48)
[2022-12-05] MEDS ORDERED: BENZ78AE5 TP (07:48)
[2022-12-05] MEDS ORDERED: DOCU100C37 PO (07:48)
[2022-12-05] MEDS ORDERED: FERR325T24 PO (07:48)
--- NOTE | 2022-12-05 08:19 | Anesthesia-Regional Post-Op ---
Regional Patient Condition Mental Status: Alert, Oriented x3 Circulation: Same as Pre-Op Headache: Absent Sensation: Full Recovery Motor Block: Absent Post Op Complications Complications None Follow Up Care/Instructions Patient Instructions None needed. Anesthesia/Patient Condition Patient is doing well, no complaints, stable vital signs, no apparent adverse anesthesia problems. No complications reported per nursing. D/C home per [facility] Criteria: Yes EMMY WHITE CRNA Dec 05, 2022 08:19
[2022-12-05] MEDS ORDERED: FERROUS SULF 325 MG (IRON) TAB PO SCH (09:00)
[2022-12-05] MEDS: PRENATAL VITAMIN 1 EA TAB PO SCH (09:41)
[2022-12-05] MEDS: FERROUS SULF 325 MG (IRON) TAB PO SCH ×3 (09:41→21:35)
[2022-12-05] MEDS: DOCUSATE SODIUM 100 MG (COLACE) CAP PO SCH ×2 (09:41→21:35)
[2022-12-05] MEDS: CATHETER FLUSH 10 ML SYR IV SCH (14:00)
[2022-12-06 00:55] VITALS: BP 104/57
[2022-12-06] MEDS: IBUPROFEN 600 MG (MOTRIN) TAB PO SCH (04:59)
[2022-12-06 05:00] VITALS: BP 110/59
--- NOTE | 2022-12-06 07:25 | Postpartum Progress Note ---
Note Note Day # 2 Subjective: Patient is without complaints. Ambulating, voiding. Tolerating a regular diet without nausea or vomiting. Normal lochia. Pain is well controlled with oral pain medications. Objective: Physical Exam: General - Alert and oriented, no apparent distress Abdomen - Soft, appropriately tender to palpation, non-distended, fundus firm at umbilicus Extremities - no edema, negative Daeline's bilaterally Assessment: PPD 2 VAVD Acute anemia, superimposed on chronic anemia of Plan: Routine care. Encourage breast feeding. Encourage ambulation. Ferrous sulfate supplementation. Plan for discharge today Vitals - Labs Vital Signs - I&O Vital Signs Date Time Temp Pulse Resp B/P (MAP) Pulse Ox O2 Delivery O2 Flow Rate FiO2 12/06/22 05:00 36.4 104 16 110/59 (76) 99 Room Air 12/06/22 00:55 36.0 95 16 104/57 (73) 99 Room Air 12/05/22 20:15 36.3 102 18 140/71 (94) 99 Room Air 12/05/22 16:00 36.6 100 20 117/62 (80) 99 Room Air 12/05/22 11:33 36.3 101 18 130/65 (86) 98 Room Air 12/05/22 07:57 36.6 108 20 126/76 (93) 98 Room Air NUNO GARCIA DO Dec 06, 2022 07:25
[2022-12-06 09:03] VITALS: BP 120/84
[2022-12-06] MEDS: DOCUSATE SODIUM 100 MG (COLACE) CAP PO SCH (09:09)
[2022-12-06] MEDS: PRENATAL VITAMIN 1 EA TAB PO SCH (09:09)
[2022-12-06] MEDS: FERROUS SULF 325 MG (IRON) TAB PO SCH (09:09)
== END 2022-12-06 12:00 | disposition home or self-care (01) | DRG 768 ==
LOC: LDRP 07:00
PROVIDERS: ADMIT Obstetrics & Gynecology; ATTEND Obstetrics & Gynecology
PROC: 10D07Z6 Extraction of Products of Conception, Vacuum, Via Natural or Artificial Opening (ICD-10-PCS; principal; 2022-12-04)
PROC: 0DQR0ZZ Repair Anal Sphincter, Open Approach (ICD-10-PCS; 2022-12-04)
PROC: 10907ZC Drainage of Amniotic Fluid, Therapeutic from Products of Conception, Via Natural or Artificial Opening (ICD-10-PCS; 2022-12-04)
DX: O48.0 Post-term pregnancy (principal); Z37.0 Single live birth; O70.20 Third degree perineal laceration during delivery, unspecified; D62 Acute posthemorrhagic anemia; Z3A.40 40 weeks gestation of pregnancy; O90.81 Anemia of the puerperium
CPT/HCPCS: 36415; 85025; 86780; 86850; 86900; 86901